=== PATIENT | male | born 1970 | race African-American/Black ===

== ENCOUNTER 2018-09-10 05:41 | Inpatient (IN) | payer OTHER ==
[~2018-09-10] VITALS: Ht 185.4 cm; Wt 69.9 kg
[2018-09-10] MEDS ORDERED: SODIUM CHLORIDE 0.9% 1,000 ML IV ONE ×3 (07:15→12:30)
[2018-09-10 07:40] LABS: BASOPHILS % 0.8 % (0.0-2.0); EOSINOPHILS % 0.4 % (0.0-5.0); HEMATOCRIT. 29.6 % (42.0-52.0); HEMOGLOBIN. 9.4 g/dL (14.0-18.0); LYMPHOCYTES % 12.5 % (20.0-50.0); MEAN CORPUSCULAR HEMOGLOBIN 24.5 pg (28.0-32.0); MEAN CORPUSCULAR VOLUME 76.7 fL (80.0-94.0); MONOCYTES % 8.6 % (2.0-8.0); NEUTROPHILS % 77.7 % (40.0-76.0); PLATELET 333 x1000/uL (130-400); RED BLOOD CELL COUNT 3.86 mill/uL (4.7-6.1); RED CELL DISTRIBUTION WIDTH 17.3 % (11.6-14.6)
[2018-09-10 07:47] LABS: CHLORIDE 101 mEq/L (98-107)
[2018-09-10 07:56] LABS: CREATINE KINASE 101 IU/L (39-308)
[2018-09-10 11:31] LABS: CLARITY URINE CLEAR (CLEAR); COLOR URINE YELLOW (YELLOW); KETONES URINE NEGATIVE (NEGATIVE); LEUKOCYTE ESTERASE URINE 1+ (NEGATIVE); NITRITE URINE NEGATIVE (NEGATIVE); OCCULT BLOOD URINE NEGATIVE (NEGATIVE); PH URINE 5.5 (4.5-8.0); PROTEIN URINE 1+ (NEGATIVE); SPECIFIC GRAVITY URINE 1.012 (1.005-1.030); UROBILINOGEN URINE 0.2 E.U./dL (0.2-1.0)
[2018-09-10] MEDS ORDERED: CEFTRIAXONE 1 G PREMIX 50 ML IV ONE (12:30)
[2018-09-10 20:00] VITALS: BP 126/82
[2018-09-10] MEDS ORDERED: MAGNESIUM/ALUMINUM HYDROXIDE/SIMETHICONE 30ML UDC PO PRN (20:30)
[2018-09-10] MEDS ORDERED: NA PHOS,M-B/NA PHOS,DI-BA ENEMA 118ML PR PRN (20:30)
[2018-09-10] MEDS ORDERED: ONDANSETRON HCL 4MG/2ML INJ IV PRN (20:30)
[2018-09-10 22:00] VITALS: BP 126/82
[2018-09-11] VITALS: BP 160/82
[2018-09-11 04:00] VITALS: BP 141/86
[2018-09-11] MEDS: HYDROCODONE/ACETAMINOPHEN 5/325MG TABLET PO PRN ×2 (04:15→21:51)
[2018-09-11 06:30] LABS: BASOPHILS % 1.4 % (0.0-2.0); HEMATOCRIT. 28.5 % (42.0-52.0); HEMOGLOBIN. 8.9 g/dL (14.0-18.0); LYMPHOCYTES % 23.9 % (20.0-50.0); MEAN CORPUSCULAR HEMOGLOBIN 24.3 pg (28.0-32.0); MEAN CORPUSCULAR VOLUME 77.5 fL (80.0-94.0); MEAN PLATELET VOLUME 8.6 fl (7.4-10.4); NEUTROPHILS % 58.7 % (40.0-76.0); PLATELET 370 x1000/uL (130-400); RED BLOOD CELL COUNT 3.68 mill/uL (4.7-6.1); RED CELL DISTRIBUTION WIDTH 17.3 % (11.6-14.6)
[2018-09-11 06:40] LABS: CHLORIDE 109 mEq/L (98-107)
[2018-09-11 08:00] VITALS: BP 168/98
[2018-09-11] MEDS: FOLIC ACID 1MG TABLET PO SCH (09:56)
[2018-09-11] MEDS: MULTIVITAMINS,THER W-MINERALS TABLET PO SCH (09:56)
[2018-09-11] MEDS: AMLODIPINE 10MG TABLET PO SCH (09:56)
[2018-09-11] MEDS: THIAMINE HCL 100MG TABLET PO SCH (09:56)
[2018-09-11] MEDS: ENOXAPARIN 40MG/0.4ML SYR SUBCUT SCH (09:57)
[2018-09-11 12:00] VITALS: BP 156/77
[2018-09-11 16:00] VITALS: BP 150/54
[2018-09-11] MEDS ORDERED: DEXTROSE 50% WATER 50ML SYRINGE IV PRN (16:00)
[2018-09-11] MEDS: INSULIN LISPRO 100 UNITS/ML SUBCUT SCH ×2 (17:50→21:44)
[2018-09-11] MEDS: BLOOD SUGAR DIAGNOSTIC STRIP TEST SCH ×2 (17:53→21:44)
[2018-09-11 20:00] VITALS: BP 138/81
[2018-09-12] VITALS: BP 117/69
[2018-09-12] MEDS: ACETAMINOPHEN 325MG TABLET PO PRN (00:55)
[2018-09-12 04:00] VITALS: BP 163/87
[2018-09-12] MEDS: INSULIN LISPRO 100 UNITS/ML SUBCUT SCH ×4 (07:50→21:00)
[2018-09-12] MEDS: BLOOD SUGAR DIAGNOSTIC STRIP TEST SCH ×4 (07:51→21:00)
[2018-09-12] MEDS: THIAMINE HCL 100MG TABLET PO SCH (09:34)
[2018-09-12] MEDS: AMLODIPINE 10MG TABLET PO SCH (09:34)
[2018-09-12] MEDS: MULTIVITAMINS,THER W-MINERALS TABLET PO SCH (09:34)
[2018-09-12] MEDS: FOLIC ACID 1MG TABLET PO SCH (09:34)
[2018-09-12] MEDS: ENOXAPARIN 40MG/0.4ML SYR SUBCUT SCH (09:35)
[2018-09-12] MEDS ORDERED: LIDOCAINE HCL/EPINEPHRINE 1%-EPI 1:100,000 20 ML VIAL INFIL NR (13:30)
[2018-09-12] MEDS ORDERED: LIDOCAINE HCL/EPINEPHRINE 1%-EPI 1:100,000 30 ML VIAL INFIL NR (14:30)
[2018-09-12] MEDS: LEVOFLOXACIN 500MG PREMIX 100 ML IV SCH (18:51)
[2018-09-12 20:00] VITALS: BP 166/74
[2018-09-13] VITALS: BP 139/84
[2018-09-13 04:00] VITALS: BP 171/93
[2018-09-13] MEDS: CLONIDINE 0.1MG TABLET PO PRN (05:59)
[2018-09-13] MEDS: BLOOD SUGAR DIAGNOSTIC STRIP TEST SCH ×4 (06:01→20:24)
[2018-09-13] MEDS: INSULIN LISPRO 100 UNITS/ML SUBCUT SCH ×4 (06:05→20:27)
[2018-09-13 08:00] VITALS: BP 154/82
[2018-09-13] MEDS: FOLIC ACID 1MG TABLET PO SCH (09:01)
[2018-09-13] MEDS: ASCORBIC ACID 500 MG TABLET PO SCH (09:01)
[2018-09-13] MEDS: MULTIVITAMINS,THER W-MINERALS TABLET PO SCH (09:01)
[2018-09-13] MEDS: ZINC SULFATE 220 MG ( 50 ) CAPSULE PO SCH (09:02)
[2018-09-13] MEDS: AMLODIPINE 10MG TABLET PO SCH (09:02)
[2018-09-13] MEDS: THIAMINE HCL 100MG TABLET PO SCH (09:02)
[2018-09-13] MEDS: ACETAMINOPHEN 325MG TABLET PO PRN (09:03)
[2018-09-13] MEDS: ENOXAPARIN 40MG/0.4ML SYR SUBCUT SCH (09:04)
[2018-09-13 12:00] VITALS: BP 167/90
[2018-09-13] MEDS: LEVOFLOXACIN 500MG PREMIX 100 ML IV SCH (15:07)
[2018-09-13 16:00] VITALS: BP 117/87
[2018-09-13 20:00] VITALS: BP 152/71
[2018-09-14] VITALS: BP 151/76
[2018-09-14 04:00] VITALS: BP 148/71
[2018-09-14] MEDS: BLOOD SUGAR DIAGNOSTIC STRIP TEST SCH ×4 (06:33→23:49)
[2018-09-14] MEDS: INSULIN LISPRO 100 UNITS/ML SUBCUT SCH ×4 (07:50→23:56)
[2018-09-14 08:00] VITALS: BP 160/96
[2018-09-14] MEDS: ENOXAPARIN 40MG/0.4ML SYR SUBCUT SCH (09:12)
[2018-09-14] MEDS: ASCORBIC ACID 500 MG TABLET PO SCH (09:12)
[2018-09-14] MEDS: AMLODIPINE 10MG TABLET PO SCH (09:12)
[2018-09-14] MEDS: ZINC SULFATE 220 MG ( 50 ) CAPSULE PO SCH (09:12)
[2018-09-14] MEDS: MULTIVITAMINS,THER W-MINERALS TABLET PO SCH (09:12)
[2018-09-14] MEDS: FOLIC ACID 1MG TABLET PO SCH (09:12)
[2018-09-14] MEDS: THIAMINE HCL 100MG TABLET PO SCH (09:12)
[2018-09-14 12:00] VITALS: BP 135/73
[2018-09-14 16:00] VITALS: BP_SYST 142; BP_SYST 159; BP_DIAS 77
[2018-09-14 20:00] VITALS: BP 133/78
[2018-09-15] VITALS: BP 138/74
[2018-09-15 04:00] VITALS: BP 167/98
[2018-09-15] MEDS: CLONIDINE 0.1MG TABLET PO PRN (04:56)
[2018-09-15] MEDS: BLOOD SUGAR DIAGNOSTIC STRIP TEST SCH ×4 (07:33→22:51)
[2018-09-15] MEDS: INSULIN LISPRO 100 UNITS/ML SUBCUT SCH ×4 (07:33→21:00)
[2018-09-15 08:00] VITALS: BP 153/84
[2018-09-15] MEDS: ASCORBIC ACID 500 MG TABLET PO SCH (08:57)
[2018-09-15] MEDS: ZINC SULFATE 220 MG ( 50 ) CAPSULE PO SCH (08:57)
[2018-09-15] MEDS: FOLIC ACID 1MG TABLET PO SCH (08:57)
[2018-09-15] MEDS: MULTIVITAMINS,THER W-MINERALS TABLET PO SCH (08:57)
[2018-09-15] MEDS: AMLODIPINE 10MG TABLET PO SCH (08:57)
[2018-09-15] MEDS: THIAMINE HCL 100MG TABLET PO SCH (08:57)
[2018-09-15] MEDS: ENOXAPARIN 40MG/0.4ML SYR SUBCUT SCH (08:58)
[2018-09-15 12:22] VITALS: BP 155/85
[2018-09-15] MEDS: LEVOFLOXACIN 250MG TABLET PO SCH (14:12)
[2018-09-15 15:58] VITALS: BP 160/66
[2018-09-15 20:00] VITALS: BP 155/95
[2018-09-16] VITALS: BP 158/89
[2018-09-16 04:00] VITALS: BP 146/86
[2018-09-16 06:16] LABS: HEMATOCRIT 28.7 % (42.0-52.0); HEMOGLOBIN 9.4 g/dL (14.0-18.0); MEAN CORPUSCULAR VOLUME 76.3 fL (80.0-94.0); PLATELET 391 x1000/uL (130-400); RED BLOOD CELL COUNT 3.77 mill/uL (4.7-6.1); RED CELL DISTRIBUTION WIDTH 17.4 % (11.6-14.6)
[2018-09-16] MEDS: BLOOD SUGAR DIAGNOSTIC STRIP TEST SCH ×4 (07:03→20:32)
[2018-09-16] MEDS: INSULIN LISPRO 100 UNITS/ML SUBCUT SCH ×4 (07:50→20:31)
[2018-09-16 08:00] VITALS: BP_SYST 127; BP_SYST 132; BP_DIAS 84; BP_DIAS 94
[2018-09-16] MEDS: THIAMINE HCL 100MG TABLET PO SCH (08:59)
[2018-09-16] MEDS: ZINC SULFATE 220 MG ( 50 ) CAPSULE PO SCH (08:59)
[2018-09-16] MEDS: MULTIVITAMINS,THER W-MINERALS TABLET PO SCH (09:00)
[2018-09-16] MEDS: ASCORBIC ACID 500 MG TABLET PO SCH (09:00)
[2018-09-16] MEDS: ENOXAPARIN 40MG/0.4ML SYR SUBCUT SCH (09:00)
[2018-09-16] MEDS: AMLODIPINE 10MG TABLET PO SCH (09:00)
[2018-09-16] MEDS: FOLIC ACID 1MG TABLET PO SCH (09:00)
[2018-09-16 12:00] VITALS: BP 159/56
[2018-09-16] MEDS: LEVOFLOXACIN 250MG TABLET PO SCH (13:05)
[2018-09-16 16:00] VITALS: BP 125/79
[2018-09-16 20:00] VITALS: BP 146/76
[2018-09-16] MEDS: HYDROCODONE/ACETAMINOPHEN 5/325MG TABLET PO PRN (20:32)
[2018-09-17] VITALS: BP 160/89
[2018-09-17 04:00] VITALS: BP 158/91
[2018-09-17 06:48] LABS: CHLORIDE 101 mEq/L (98-107)
[2018-09-17] MEDS: BLOOD SUGAR DIAGNOSTIC STRIP TEST SCH ×4 (07:57→20:52)
[2018-09-17 08:25] VITALS: BP 198/98
[2018-09-17] MEDS: THIAMINE HCL 100MG TABLET PO SCH (08:47)
[2018-09-17] MEDS: AMLODIPINE 10MG TABLET PO SCH (08:47)
[2018-09-17] MEDS: MULTIVITAMINS,THER W-MINERALS TABLET PO SCH (08:47)
[2018-09-17] MEDS: ASCORBIC ACID 500 MG TABLET PO SCH (08:47)
[2018-09-17] MEDS: FOLIC ACID 1MG TABLET PO SCH (08:47)
[2018-09-17] MEDS: ZINC SULFATE 220 MG ( 50 ) CAPSULE PO SCH (08:47)
[2018-09-17] MEDS: ENOXAPARIN 40MG/0.4ML SYR SUBCUT SCH (08:48)
[2018-09-17] MEDS: HYDROCODONE/ACETAMINOPHEN 5/325MG TABLET PO PRN ×2 (08:48→20:17)
[2018-09-17] MEDS: INSULIN LISPRO 100 UNITS/ML SUBCUT SCH ×4 (08:52→21:25)
[2018-09-17 11:48] VITALS: BP 144/82
[2018-09-17] MEDS: LEVOFLOXACIN 250MG TABLET PO SCH (13:12)
[2018-09-17 16:17] VITALS: BP 156/85
[2018-09-17 20:00] VITALS: BP 148/81
[2018-09-18] VITALS: BP 116/74
[2018-09-18] MEDS: HYDROCODONE/ACETAMINOPHEN 5/325MG TABLET PO PRN ×3 (00:20→20:37)
[2018-09-18 04:00] VITALS: BP 141/77
[2018-09-18] MEDS: BLOOD SUGAR DIAGNOSTIC STRIP TEST SCH ×4 (05:35→20:37)
[2018-09-18] MEDS: INSULIN LISPRO 100 UNITS/ML SUBCUT SCH ×4 (07:50→21:10)
[2018-09-18 08:00] VITALS: BP 174/87
[2018-09-18] MEDS: ASCORBIC ACID 500 MG TABLET PO SCH (09:10)
[2018-09-18] MEDS: FOLIC ACID 1MG TABLET PO SCH (09:10)
[2018-09-18] MEDS: ZINC SULFATE 220 MG ( 50 ) CAPSULE PO SCH (09:11)
[2018-09-18] MEDS: AMLODIPINE 10MG TABLET PO SCH (09:11)
[2018-09-18] MEDS: THIAMINE HCL 100MG TABLET PO SCH (09:11)
[2018-09-18] MEDS: MULTIVITAMINS,THER W-MINERALS TABLET PO SCH (09:11)
[2018-09-18] MEDS: ENOXAPARIN 40MG/0.4ML SYR SUBCUT SCH (09:12)
[2018-09-18 12:00] VITALS: BP 117/75
[2018-09-18] MEDS: LEVOFLOXACIN 250MG TABLET PO SCH (14:05)
[2018-09-18 16:00] VITALS: BP 152/86
[2018-09-18 20:00] VITALS: BP 147/80
[2018-09-19] VITALS: BP 153/67
[2018-09-19 04:00] VITALS: BP 151/89
[2018-09-19] MEDS: BLOOD SUGAR DIAGNOSTIC STRIP TEST SCH ×4 (06:15→21:00)
[2018-09-19] MEDS: INSULIN LISPRO 100 UNITS/ML SUBCUT SCH ×4 (06:59→21:00)
[2018-09-19 08:00] VITALS: BP 156/86
[2018-09-19] MEDS: FOLIC ACID 1MG TABLET PO SCH (09:41)
[2018-09-19] MEDS: ZINC SULFATE 220 MG ( 50 ) CAPSULE PO SCH (09:41)
[2018-09-19] MEDS: HYDROCODONE/ACETAMINOPHEN 5/325MG TABLET PO PRN (09:41)
[2018-09-19] MEDS: THIAMINE HCL 100MG TABLET PO SCH (09:41)
[2018-09-19] MEDS: MULTIVITAMINS,THER W-MINERALS TABLET PO SCH (09:41)
[2018-09-19] MEDS: ASCORBIC ACID 500 MG TABLET PO SCH (09:41)
[2018-09-19] MEDS: AMLODIPINE 10MG TABLET PO SCH (09:41)
[2018-09-19] MEDS: ENOXAPARIN 40MG/0.4ML SYR SUBCUT SCH (09:42)
[2018-09-19 12:00] VITALS: BP 152/76
[2018-09-19] MEDS: DOCUSATE SODIUM 100MG CAPSULE PO PRN (12:43)
[2018-09-19] MEDS: LEVOFLOXACIN 500MG TABLET PO SCH (15:16)
[2018-09-19 16:00] VITALS: BP 156/59
[2018-09-19 20:00] VITALS: BP 173/97
[2018-09-20] VITALS: BP 157/63
[2018-09-20 04:00] VITALS: BP 157/73
[2018-09-20] MEDS: BLOOD SUGAR DIAGNOSTIC STRIP TEST SCH ×4 (07:00→22:22)
[2018-09-20] MEDS: INSULIN LISPRO 100 UNITS/ML SUBCUT SCH ×4 (07:00→22:21)
[2018-09-20 08:00] VITALS: BP 168/99
[2018-09-20] MEDS: ZINC SULFATE 220 MG ( 50 ) CAPSULE PO SCH (09:27)
[2018-09-20] MEDS: THIAMINE HCL 100MG TABLET PO SCH (09:27)
[2018-09-20] MEDS: MULTIVITAMINS,THER W-MINERALS TABLET PO SCH (09:27)
[2018-09-20] MEDS: ASCORBIC ACID 500 MG TABLET PO SCH (09:27)
[2018-09-20] MEDS: DOCUSATE SODIUM 100MG CAPSULE PO PRN ×3 (09:27→22:23)
[2018-09-20] MEDS: AMLODIPINE 10MG TABLET PO SCH (09:27)
[2018-09-20] MEDS: FOLIC ACID 1MG TABLET PO SCH (09:27)
[2018-09-20] MEDS: HYDROCODONE/ACETAMINOPHEN 5/325MG TABLET PO PRN (09:28)
[2018-09-20] MEDS: ENOXAPARIN 40MG/0.4ML SYR SUBCUT SCH (09:28)
[2018-09-20] MEDS: LEVOFLOXACIN 500MG TABLET PO SCH (11:29)
[2018-09-20 12:00] VITALS: BP 148/99
[2018-09-20 16:00] VITALS: BP 163/85
[2018-09-20 20:00] VITALS: BP 188/70
[2018-09-20] MEDS: CLONIDINE 0.1MG TABLET PO PRN (22:56)
[2018-09-21] VITALS: BP 160/83
[2018-09-21 04:00] VITALS: BP 181/94
[2018-09-21] MEDS: CLONIDINE 0.1MG TABLET PO PRN (06:12)
[2018-09-21] MEDS: INSULIN LISPRO 100 UNITS/ML SUBCUT SCH ×2 (07:50→12:35)
[2018-09-21 08:00] VITALS: BP 169/95
[2018-09-21] MEDS: ZINC SULFATE 220 MG ( 50 ) CAPSULE PO SCH (09:25)
[2018-09-21] MEDS: ASCORBIC ACID 500 MG TABLET PO SCH (09:25)
[2018-09-21] MEDS: MULTIVITAMINS,THER W-MINERALS TABLET PO SCH (09:25)
[2018-09-21] MEDS: THIAMINE HCL 100MG TABLET PO SCH (09:26)
[2018-09-21] MEDS: FOLIC ACID 1MG TABLET PO SCH (09:26)
[2018-09-21] MEDS: ENOXAPARIN 40MG/0.4ML SYR SUBCUT SCH (09:27)
[2018-09-21] MEDS: AMLODIPINE 10MG TABLET PO SCH (09:27)
[2018-09-21] MEDS: LEVOFLOXACIN 500MG TABLET PO SCH (11:35)
[2018-09-21] MEDS: BLOOD SUGAR DIAGNOSTIC STRIP TEST SCH (11:48)
[2018-09-21 12:00] VITALS: BP 149/80
== END 2018-09-21 15:50 | disposition left against medical advice (07) | DRG 469 ==
LOC: ER 05:41 → 6EST 13:21 → ENRESERV 19:29
PROVIDERS: ADMIT Hospitalist; ATTEND Hospitalist
PROC: 0JB70ZZ Excision of Back Subcutaneous Tissue and Fascia, Open Approach (ICD-10-PCS; principal; 2018-09-12)
DX: N17.9 Acute kidney failure, unspecified (principal); L89.153 Pressure ulcer of sacral region, stage 3; T68.XXXA Hypothermia, initial encounter; R65.10 Systemic inflammatory response syndrome (SIRS) of non-infectious origin without acute organ dysfunction; L89.610 Pressure ulcer of right heel, unstageable; N39.0 Urinary tract infection, site not specified; D63.8 Anemia in other chronic diseases classified elsewhere; E11.9 Type 2 diabetes mellitus without complications; F17.200 Nicotine dependence, unspecified, uncomplicated; B96.4 Proteus (mirabilis) (morganii) as the cause of diseases classified elsewhere; L85.9 Epidermal thickening, unspecified; M25.572 Pain in left ankle and joints of left foot; I10 Essential (primary) hypertension; Z53.21 Procedure and treatment not carried out due to patient leaving prior to being seen by health care provider; Z59.0 Homelessness
CPT/HCPCS: 36415; 71045; 73610; 80048; 82550; 82962; 83605; 84134; 84484; 85027; 87077; 87186; 93970; 96361; 96365; 97116; 97162; 99285; J0696; J1650; J1815; J1956; J3490; J7030

== ENCOUNTER 2019-02-20 10:07 | Inpatient (IN) | payer OTHER ==
[2019-02-20] VITALS (12 sets, daily range): BP systolic 122–210; BP diastolic 79–141
[~2019-02-20] VITALS: Ht 188 cm; Wt 122.5 kg
[2019-02-20] MEDS ORDERED: SODIUM CHLORIDE 0.9% 1,000 ML IV ONE (10:39)
[2019-02-20 11:07] LABS: HEMATOCRIT. 40.4 % (42.0-52.0); MEAN CORPUSCULAR HEMOGLOBIN 26.4 pg (28.0-32.0); MEAN CORPUSCULAR VOLUME 81.7 fL (80.0-94.0); MEAN PLATELET VOLUME 9.3 fl (7.4-10.4); PLATELET 205 x1000/uL (130-400); RED BLOOD CELL COUNT 4.94 mill/uL (4.7-6.1); RED CELL DISTRIBUTION WIDTH 19.5 % (11.6-14.6)
[2019-02-20 11:11] LABS: CHLORIDE 111 mEq/L (98-107)
[2019-02-20 11:13] LABS: INR 1.1; PROTHROMBIN TIME 11.5 sec (9.6-11.0)
[2019-02-20 11:15] LABS: ETHANOL BLOOD < 10 mg/dL
[2019-02-20] MEDS ORDERED: ADENOSINE 3 MG/ML 2ML VIAL IV ONE ×2 (11:45)
[2019-02-20 12:00] LABS: CLARITY URINE CLEAR (CLEAR); COLOR URINE YELLOW (YELLOW); KETONES URINE NEGATIVE (NEGATIVE); LEUKOCYTE ESTERASE URINE NEGATIVE (NEGATIVE); NITRITE URINE NEGATIVE (NEGATIVE); OCCULT BLOOD URINE TRACE (NEGATIVE); PH URINE 5.5 (4.5-8.0); PROTEIN URINE 2+ (NEGATIVE); SPECIFIC GRAVITY URINE 1.014 (1.005-1.030)
[2019-02-20 12:07] LABS: PLATELET ESTIMATE NORMAL
[2019-02-20] MEDS ORDERED: DILTIAZEM HCL 5MG/ML 5ML VIAL IV NR (12:30)
[2019-02-20 12:38] LABS: *AMPHETAMINES SCREEN URINE PRESUMTIVE POSITIVE (NEGATIVE); *BARBITURATES SCREEN URINE NEGATIVE (NEGATIVE); *BENZODIAZEPINES SCREEN URINE NEGATIVE (NEGATIVE); *COCAINE SCREEN URINE PRESUMTIVE POSITIVE (NEGATIVE)
[2019-02-20 12:39] LABS: CANNABINOID URINE SCREEN PRESUMTIVE POSITIVE (NEGATIVE); METHADONE URINE SCREEN NEGATIVE (NEGATIVE); OPIATES URINE SCREEN NEGATIVE (NEGATIVE); PHENCYCLIDINE URINE SCREEN PRESUMTIVE POSITIVE (NEGATIVE)
[2019-02-20] MEDS ORDERED: AMIODARONE HCL 900 MG in DEXT 5% WATER 500 ML IV ONE (13:30)
[2019-02-20] MEDS ORDERED: AMIODARONE HCL 150 MG in DEXT 5% WATER 100 ML IV ONE (13:30)
[2019-02-20] MEDS ORDERED: DIPHENHYDRAMINE 50MG/ML VIAL IV PRN (13:45)
[2019-02-20] MEDS ORDERED: ONDANSETRON HCL 4MG/2ML INJ IV PRN (13:45)
[2019-02-20] MEDS ORDERED: IPRATROPIUM/ALBUTEROL 0.5-3(2.5)MG/3ML NEB INH PRN (13:45)
[2019-02-20] MEDS ORDERED: MAGNESIUM/ALUMINUM HYDROXIDE/SIMETHICONE 30ML UDC PO PRN (13:45)
[2019-02-20] MEDS ORDERED: HYDROCODONE/ACETAMINOPHEN 5/325MG TABLET PO PRN (13:45)
[2019-02-20] MEDS ORDERED: ENOXAPARIN 40MG/0.4ML SYR SUBCUT SCH (13:45)
[2019-02-20 13:55] LABS: PHOSPHORUS 3.8 mg/dL (2.5-4.9)
[2019-02-20] MEDS ORDERED: DILTIAZEM HCL 125 MG in DEXT 5% WATER 100 ML IV ONE (14:00)
[2019-02-20 14:26] LABS: BG BASE EXCESS -6.5 mmol/L (-2.0-2.0); BG CARBOXYHEMOGLOBIN 1.5 % (0.5-1.5); BG DEOXYHEMOGLOBIN 6.1 % (0.0-5.0); BG FRACTION INSPIRED OXYGEN 32; BG METHEMOGLOBIN 0.1 % (0.0-1.5); BG OXYGEN SATURATION 93.8 % (92.0-98.5); BG OXYHEMOGLOBIN 92.3 % (94.0-97.0); BG PCO2 33.1 mmHg (35.0-45.0); BG PH 7.353 (7.350-7.450); BG PO2 74.4 mmHg (75.0-100.0); BG SAMPLE SITE RIGHT BRACHIAL; BG TOTAL HEMOGLOBIN 13.9 g/dL (12.0-18.0); BG VENT MODE NASAL CANNULA
[2019-02-20 14:50] LABS: CREATINE KINASE MB FRACTION 4.8 ng/mL (0.5-3.6)
[2019-02-20] MEDS ORDERED: ENOXAPARIN 80MG/0.8ML SYR SUBCUT SCH (16:00)
[2019-02-20] MEDS ORDERED: POTASSIUM CHLORIDE 20MEQ/PACKET PO NR (16:00)
[2019-02-20] MEDS: DILTIAZEM HCL 125 MG in DEXT 5% WATER 100 ML IV SCH ×2 (16:00→22:20)
[2019-02-20] MEDS ORDERED: DILTIAZEM HCL 125 MG in DEXT 5% WATER 100 ML IV SCH (16:30)
[2019-02-20] MEDS ORDERED: HYDRALAZINE HCL 25MG TABLET PO SCH (16:33)
[2019-02-20] MEDS: FUROSEMIDE 40MG/4ML VIAL IV SCH (16:37)
[2019-02-20] MEDS: NITROGLYCERIN OINT 1GM/INCH UDPKT TD SCH ×2 (16:45→22:08)
[2019-02-20] MEDS: BLOOD SUGAR DIAGNOSTIC STRIP TEST SCH ×2 (17:23→21:27)
[2019-02-20] MEDS ORDERED: DEXTROSE 50% WATER 50ML SYRINGE IV PRN (17:30)
[2019-02-20] MEDS: INSULIN LISPRO 100 UNITS/ML SUBCUT SCH ×2 (17:37→21:39)
[2019-02-20] MEDS ORDERED: POTASSIUM CHLORIDE INJ 40 MEQ in DEXT 5% WATER 250 ML IV NR (18:00)
[2019-02-20] MEDS: LORAZEPAM 0.5MG TABLET PO PRN (22:07)
[2019-02-20] MEDS: HYDRALAZINE HCL 25MG TABLET PO SCH (22:08)
[2019-02-21] VITALS (14 sets, daily range): BP systolic 111–161; BP diastolic 76–110
[2019-02-21] MEDS: DILTIAZEM HCL 125 MG in DEXT 5% WATER 100 ML IV SCH ×3 (00:20→18:04)
[2019-02-21 01:58] LABS: BG BASE EXCESS -7.1 mmol/L (-2.0-2.0); BG CARBOXYHEMOGLOBIN 1.2 % (0.5-1.5); BG DEOXYHEMOGLOBIN 6.9 % (0.0-5.0); BG FRACTION INSPIRED OXYGEN 28; BG METHEMOGLOBIN 0.2 % (0.0-1.5); BG OXYHEMOGLOBIN 91.7 % (94.0-97.0); BG PCO2 19.7 mmHg (35.0-45.0); BG PH 7.469 (7.350-7.450); BG PO2 62.8 mmHg (75.0-100.0); BG SAMPLE SITE RIGHT RADIAL; BG TOTAL HEMOGLOBIN 14.4 g/dL (12.0-18.0); BG VENT MODE NASAL CANNULA
[2019-02-21] MEDS ORDERED: ENOXAPARIN 100MG/ML SYR SUBCUT SCH (04:00)
[2019-02-21] MEDS: NITROGLYCERIN OINT 1GM/INCH UDPKT TD SCH ×4 (05:43→22:48)
[2019-02-21] MEDS: LORAZEPAM 0.5MG TABLET PO PRN (05:43)
[2019-02-21] MEDS: HYDRALAZINE HCL 25MG TABLET PO SCH ×3 (05:43→22:49)
[2019-02-21] MEDS: FUROSEMIDE 40MG/4ML VIAL IV SCH ×2 (06:26→18:04)
[2019-02-21] MEDS: BLOOD SUGAR DIAGNOSTIC STRIP TEST SCH ×4 (06:32→21:00)
[2019-02-21 06:38] LABS: BASOPHILS % 0.8 % (0.0-2.0); EOSINOPHILS % 0.8 % (0.0-5.0); HEMATOCRIT. 41.7 % (42.0-52.0); HEMOGLOBIN. 13.2 g/dL (14.0-18.0); LYMPHOCYTES % 27.2 % (20.0-50.0); MEAN CORPUSCULAR HEMOGLOBIN 26.1 pg (28.0-32.0); MEAN CORPUSCULAR VOLUME 82.5 fL (80.0-94.0); MEAN PLATELET VOLUME 9.1 fl (7.4-10.4); MONOCYTES % 8.6 % (2.0-8.0); NEUTROPHILS % 62.6 % (40.0-76.0); PLATELET 218 x1000/uL (130-400); RED BLOOD CELL COUNT 5.05 mill/uL (4.7-6.1); RED CELL DISTRIBUTION WIDTH 20.4 % (11.6-14.6)
[2019-02-21] MEDS: INSULIN LISPRO 100 UNITS/ML SUBCUT SCH ×4 (07:20→21:10)
[2019-02-21 08:10] LABS: CHLORIDE 112 mEq/L (98-107)
[2019-02-21 08:27] LABS: CREATINE KINASE 89 IU/L (39-308); HDL CHOLESTEROL 42 mg/dL (40-59)
[2019-02-21] MEDS: CITRIC ACID/SODIUM CITRATE SOLN 30ML UDC PO SCH ×2 (08:29→20:01)
[2019-02-21 08:31] LABS: LDL CHOLESTEROL 67 mg/dL (5-100)
[2019-02-21 08:37] LABS: PHOSPHORUS 4.3 mg/dL (2.5-4.9)
[2019-02-21] MEDS ORDERED: HALOPERIDOL LACTATE 5MG/ML VIAL IM PRN (09:30)
[2019-02-21 11:50] LABS: BG BASE EXCESS -2.9 mmol/L (-2.0-2.0); BG CARBOXYHEMOGLOBIN 1.1 % (0.5-1.5); BG DEOXYHEMOGLOBIN 4.5 % (0.0-5.0); BG FRACTION INSPIRED OXYGEN 28; BG HCO3 ACT 19.5 mmol/L (22.0-26.0); BG METHEMOGLOBIN 0.2 % (0.0-1.5); BG OXYGEN SATURATION 95.4 % (92.0-98.5); BG OXYHEMOGLOBIN 94.2 % (94.0-97.0); BG PCO2 27.9 mmHg (35.0-45.0); BG PH 7.462 (7.350-7.450); BG PO2 75.6 mmHg (75.0-100.0); BG SAMPLE SITE RIGHT RADIAL; BG TOTAL HEMOGLOBIN 13.9 g/dL (12.0-18.0); BG VENT MODE NASAL CANNULA
[2019-02-21 12:26] LABS: T4 FREE 0.95 ng/dL (0.76-1.46)
[2019-02-21 15:08] LABS: HEPATITIS A AB IGM NEGATIVE (NEGATIVE)
[2019-02-21 16:04] LABS: HEPATITIS B SURFACE ANTIGEN NEGATIVE
[2019-02-21] MEDS: CLONIDINE 0.1MG TABLET PO PRN (19:58)
[2019-02-22] VITALS (17 sets, daily range): BP systolic 130–181; BP diastolic 78–119
[2019-02-22] MEDS: DILTIAZEM HCL 125 MG in DEXT 5% WATER 100 ML IV SCH (01:34)
[2019-02-22] MEDS: CLONIDINE 0.1MG TABLET PO PRN (01:42)
[2019-02-22] MEDS: HYDRALAZINE HCL 25MG TABLET PO SCH (06:09)
[2019-02-22] MEDS: NITROGLYCERIN OINT 1GM/INCH UDPKT TD SCH (06:09)
[2019-02-22] MEDS: BLOOD SUGAR DIAGNOSTIC STRIP TEST SCH ×4 (06:13→20:53)
[2019-02-22] MEDS: FUROSEMIDE 40MG/4ML VIAL IV SCH ×2 (06:18→17:45)
[2019-02-22 06:44] LABS: BASOPHILS % 1.1 % (0.0-2.0); EOSINOPHILS % 2.1 % (0.0-5.0); HEMATOCRIT. 41.2 % (42.0-52.0); HEMOGLOBIN. 13.3 g/dL (14.0-18.0); LYMPHOCYTES % 24.1 % (20.0-50.0); MEAN CORPUSCULAR HEMOGLOBIN 26.6 pg (28.0-32.0); MEAN CORPUSCULAR VOLUME 82.4 fL (80.0-94.0); MEAN PLATELET VOLUME 9.2 fl (7.4-10.4); MONOCYTES % 9.9 % (2.0-8.0); NEUTROPHILS % 62.8 % (40.0-76.0); PLATELET 234 x1000/uL (130-400); RED CELL DISTRIBUTION WIDTH 20.4 % (11.6-14.6)
[2019-02-22 07:12] LABS: HIV SCREEN 4G Non Reactive (Non Reactive)
[2019-02-22 07:21] LABS: PHOSPHORUS 3.9 mg/dL (2.5-4.9)
[2019-02-22] MEDS: CITRIC ACID/SODIUM CITRATE SOLN 30ML UDC PO SCH ×2 (08:30→21:10)
[2019-02-22] MEDS: INSULIN LISPRO 100 UNITS/ML SUBCUT SCH ×4 (08:30→21:10)
[2019-02-22] MEDS ORDERED: CLOPIDOGREL 75MG TABLET PO SCH (09:00)
[2019-02-22 09:46] LABS: T4 FREE 1.01 ng/dL (0.76-1.46)
[2019-02-22] MEDS ORDERED: LOSARTAN POTASSIUM 25 MG TABLET PO SCH (10:00)
[2019-02-22 10:05] LABS: VITAMIN B12 SERUM >2000 pg/mL pg/mL (211-911)
[2019-02-22] MEDS: THIAMINE HCL 100MG TABLET PO SCH (10:09)
[2019-02-22] MEDS: MULTIVITAMINS,THER W-MINERALS TABLET PO SCH (10:09)
[2019-02-22] MEDS: ASPIRIN 81MG EC TABLET PO SCH (10:09)
[2019-02-22] MEDS: FOLIC ACID 1MG TABLET PO SCH (10:09)
[2019-02-22] MEDS: HYDRALAZINE HCL 50MG TABLET PO SCH ×2 (13:14→21:14)
[2019-02-22] MEDS: LACTULOSE 20G/30ML UDC PO SCH ×2 (13:14→21:13)
[2019-02-22] MEDS ORDERED: DILTIAZEM HCL 60MG TABLET PO SCH (14:00)
[2019-02-22] MEDS ORDERED: ATROPINE SULFATE 1MG/ML VIAL IV PRN (15:45)
[2019-02-22] MEDS: RIVAROXABAN 20 MG TABLET PO SCH (17:45)
[2019-02-22] MEDS: ATORVASTATIN CALCIUM 10MG TABLET PO SCH (21:10)
[2019-02-22] MEDS ORDERED: DILTIAZEM HCL 5MG/ML 5ML VIAL IV PRN (23:15)
[2019-02-23] VITALS (17 sets, daily range): BP systolic 126–183; BP diastolic 79–134
[2019-02-23] MEDS: CLONIDINE 0.1MG TABLET PO PRN ×2 (01:29→08:25)
[2019-02-23] MEDS: LACTULOSE 20G/30ML UDC PO SCH ×3 (05:18→23:05)
[2019-02-23] MEDS: HYDRALAZINE HCL 50MG TABLET PO SCH (05:18)
[2019-02-23] MEDS ORDERED: AMLODIPINE 2.5MG TABLET PO NR (06:00)
[2019-02-23] MEDS: BLOOD SUGAR DIAGNOSTIC STRIP TEST SCH ×5 (06:53→20:59)
[2019-02-23] MEDS: GLIPIZIDE 5MG TABLET PO SCH (07:04)
[2019-02-23] MEDS: FUROSEMIDE 40MG/4ML VIAL IV SCH (07:04)
[2019-02-23 07:45] LABS: HEMATOCRIT. 42.3 % (42.0-52.0); HEMOGLOBIN. 13.7 g/dL (14.0-18.0); LYMPHOCYTES % 24.3 % (20.0-50.0); MEAN CORPUSCULAR HEMOGLOBIN 26.4 pg (28.0-32.0); MEAN CORPUSCULAR VOLUME 81.4 fL (80.0-94.0); MEAN PLATELET VOLUME 8.9 fl (7.4-10.4); MONOCYTES % 9.3 % (2.0-8.0); NEUTROPHILS % 63.4 % (40.0-76.0); PLATELET 222 x1000/uL (130-400); RED BLOOD CELL COUNT 5.19 mill/uL (4.7-6.1)
[2019-02-23 08:02] LABS: PHOSPHORUS 2.7 mg/dL (2.5-4.9)
[2019-02-23] MEDS: THIAMINE HCL 100MG TABLET PO SCH (08:24)
[2019-02-23] MEDS: ASPIRIN 81MG EC TABLET PO SCH (08:24)
[2019-02-23] MEDS: MULTIVITAMINS,THER W-MINERALS TABLET PO SCH (08:24)
[2019-02-23] MEDS: FOLIC ACID 1MG TABLET PO SCH (08:24)
[2019-02-23] MEDS: INSULIN LISPRO 100 UNITS/ML SUBCUT SCH ×4 (08:25→21:13)
[2019-02-23] MEDS: CITRIC ACID/SODIUM CITRATE SOLN 30ML UDC PO SCH (08:26)
[2019-02-23] MEDS ORDERED: POTASSIUM CHLORIDE 20MEQ TABLET SR PO SCH (08:45)
[2019-02-23] MEDS ORDERED: DILTIAZEM HCL 30MG TABLET PO SCH ×2 (10:00→14:00)
[2019-02-23] MEDS ORDERED: LOSARTAN POTASSIUM 50 MG TABLET PO SCH (12:00)
[2019-02-23] MEDS: ISOSORB DINIT/HYDRALAZINE HCL 20/37.5MG TABLET PO SCH ×2 (12:51→18:01)
[2019-02-23] MEDS ORDERED: MAGNESIUM 1 G PREMIX 100 ML IV SCH (13:00)
[2019-02-23] MEDS ORDERED: DILTIAZEM HCL 60MG TABLET PO SCH (14:00)
[2019-02-23] MEDS: RIVAROXABAN 20 MG TABLET PO SCH (18:01)
[2019-02-23] MEDS: FUROSEMIDE 20MG TABLET PO SCH (18:02)
[2019-02-23] MEDS: ATORVASTATIN CALCIUM 10MG TABLET PO SCH (21:11)
[2019-02-23] MEDS: DOXAZOSIN MESYLATE 2MG TABLET PO SCH (21:11)
[2019-02-23] MEDS: DILTIAZEM HCL 30MG TABLET PO SCH (21:12)
[2019-02-24] VITALS (15 sets, daily range): BP systolic 134–193; BP diastolic 77–124
[2019-02-24] MEDS: FUROSEMIDE 20MG TABLET PO SCH ×2 (06:04→17:44)
[2019-02-24] MEDS: GLIPIZIDE 5MG TABLET PO SCH (06:04)
[2019-02-24] MEDS: LACTULOSE 20G/30ML UDC PO SCH ×3 (06:04→21:30)
[2019-02-24] MEDS: BLOOD SUGAR DIAGNOSTIC STRIP TEST SCH ×4 (06:04→21:39)
[2019-02-24] MEDS: DILTIAZEM HCL 30MG TABLET PO SCH ×3 (06:04→21:31)
[2019-02-24 07:38] LABS: CHLORIDE 106 mEq/L (98-107)
[2019-02-24 07:47] LABS: PHOSPHORUS 2.3 mg/dL (2.5-4.9)
[2019-02-24 08:03] LABS: BASOPHILS % 0.6 % (0.0-2.0); EOSINOPHILS % 1.6 % (0.0-5.0); HEMATOCRIT. 39.2 % (42.0-52.0); HEMOGLOBIN. 12.5 g/dL (14.0-18.0); MEAN CORPUSCULAR HEMOGLOBIN 26.2 pg (28.0-32.0); MEAN CORPUSCULAR VOLUME 81.9 fL (80.0-94.0); MEAN PLATELET VOLUME 9.1 fl (7.4-10.4); MONOCYTES % 9.5 % (2.0-8.0); NEUTROPHILS % 63.3 % (40.0-76.0); PLATELET 183 x1000/uL (130-400); RED BLOOD CELL COUNT 4.78 mill/uL (4.7-6.1)
[2019-02-24] MEDS ORDERED: POTASSIUM-SODIUM PHOSPHATE POWDER PACKET PO NR (09:30)
[2019-02-24] MEDS: POTASSIUM CHLORIDE 20MEQ TABLET SR PO SCH (09:32)
[2019-02-24] MEDS: MULTIVITAMINS,THER W-MINERALS TABLET PO SCH (09:32)
[2019-02-24] MEDS: FOLIC ACID 1MG TABLET PO SCH (09:32)
[2019-02-24] MEDS: ASPIRIN 81MG EC TABLET PO SCH (09:33)
[2019-02-24] MEDS: ISOSORB DINIT/HYDRALAZINE HCL 20/37.5MG TABLET PO SCH ×3 (09:33→17:44)
[2019-02-24] MEDS: LOSARTAN POTASSIUM 50 MG TABLET PO SCH ×2 (09:33→21:31)
[2019-02-24] MEDS: THIAMINE HCL 100MG TABLET PO SCH (09:33)
[2019-02-24] MEDS: INSULIN LISPRO 100 UNITS/ML SUBCUT SCH ×4 (09:34→21:32)
[2019-02-24] MEDS: CLONIDINE 0.2MG TABLET PO SCH ×2 (15:14→21:31)
[2019-02-24] MEDS: RIVAROXABAN 20 MG TABLET PO SCH (17:44)
[2019-02-24] MEDS: ATORVASTATIN CALCIUM 10MG TABLET PO SCH (21:31)
[2019-02-24] MEDS: DOXAZOSIN MESYLATE 2MG TABLET PO SCH (21:56)
[2019-02-25] VITALS (12 sets, daily range): BP systolic 120–169; BP diastolic 30–133
[2019-02-25] MEDS: FUROSEMIDE 20MG TABLET PO SCH ×2 (06:39→17:44)
[2019-02-25] MEDS: GLIPIZIDE 5MG TABLET PO SCH (06:39)
[2019-02-25] MEDS: CLONIDINE 0.2MG TABLET PO SCH ×3 (06:39→21:07)
[2019-02-25] MEDS: DILTIAZEM HCL 30MG TABLET PO SCH ×3 (06:39→21:07)
[2019-02-25] MEDS: LACTULOSE 20G/30ML UDC PO SCH ×3 (06:40→21:08)
[2019-02-25] MEDS: BLOOD SUGAR DIAGNOSTIC STRIP TEST SCH ×4 (06:50→21:08)
[2019-02-25 06:51] LABS: BASOPHILS % 1.2 % (0.0-2.0); EOSINOPHILS % 1.8 % (0.0-5.0); HEMATOCRIT. 38.6 % (42.0-52.0); HEMOGLOBIN. 12.5 g/dL (14.0-18.0); LYMPHOCYTES % 23.1 % (20.0-50.0); MEAN CORPUSCULAR HEMOGLOBIN 26.4 pg (28.0-32.0); MEAN CORPUSCULAR VOLUME 81.2 fL (80.0-94.0); MEAN PLATELET VOLUME 8.8 fl (7.4-10.4); MONOCYTES % 9.8 % (2.0-8.0); NEUTROPHILS % 64.1 % (40.0-76.0); PLATELET 189 x1000/uL (130-400); RED BLOOD CELL COUNT 4.75 mill/uL (4.7-6.1); RED CELL DISTRIBUTION WIDTH 19.9 % (11.6-14.6)
[2019-02-25 06:57] LABS: CHLORIDE 106 mEq/L (98-107)
[2019-02-25 07:01] LABS: PHOSPHORUS 2.7 mg/dL (2.5-4.9)
[2019-02-25] MEDS: INSULIN LISPRO 100 UNITS/ML SUBCUT SCH ×4 (07:20→21:00)
[2019-02-25] MEDS: LOSARTAN POTASSIUM 50 MG TABLET PO SCH ×2 (09:13→21:07)
[2019-02-25] MEDS: ISOSORB DINIT/HYDRALAZINE HCL 20/37.5MG TABLET PO SCH ×3 (09:13→17:45)
[2019-02-25] MEDS: THIAMINE HCL 100MG TABLET PO SCH (09:13)
[2019-02-25] MEDS: POTASSIUM CHLORIDE 20MEQ TABLET SR PO SCH (09:13)
[2019-02-25] MEDS: ASPIRIN 81MG EC TABLET PO SCH (09:13)
[2019-02-25] MEDS: FOLIC ACID 1MG TABLET PO SCH (09:13)
[2019-02-25] MEDS: MULTIVITAMINS,THER W-MINERALS TABLET PO SCH (09:13)
[2019-02-25] MEDS: RIVAROXABAN 20 MG TABLET PO SCH (17:44)
[2019-02-25] MEDS: DOXAZOSIN MESYLATE 2MG TABLET PO SCH (21:08)
[2019-02-25] MEDS: ATORVASTATIN CALCIUM 10MG TABLET PO SCH (21:08)
[2019-02-26] VITALS (11 sets, daily range): BP systolic 123–162; BP diastolic 53–108
[2019-02-26] MEDS: LACTULOSE 20G/30ML UDC PO SCH ×3 (06:00→22:23)
[2019-02-26] MEDS: FUROSEMIDE 20MG TABLET PO SCH ×2 (06:22→17:18)
[2019-02-26] MEDS: CLONIDINE 0.2MG TABLET PO SCH (06:22)
[2019-02-26] MEDS: GLIPIZIDE 5MG TABLET PO SCH (06:22)
[2019-02-26] MEDS: DILTIAZEM HCL 30MG TABLET PO SCH ×3 (06:22→22:22)
[2019-02-26 06:58] LABS: CHLORIDE 105 mEq/L (98-107)
[2019-02-26 07:04] LABS: PHOSPHORUS 2.8 mg/dL (2.5-4.9)
[2019-02-26] MEDS: BLOOD SUGAR DIAGNOSTIC STRIP TEST SCH ×4 (07:06→21:00)
[2019-02-26 07:20] LABS: HEMATOCRIT. 38.2 % (42.0-52.0); HEMOGLOBIN. 12.3 g/dL (14.0-18.0); MEAN CORPUSCULAR HEMOGLOBIN 26.6 pg (28.0-32.0); MEAN CORPUSCULAR VOLUME 82.5 fL (80.0-94.0); MEAN PLATELET VOLUME 8.6 fl (7.4-10.4); PLATELET 179 x1000/uL (130-400); RED BLOOD CELL COUNT 4.63 mill/uL (4.7-6.1); RED CELL DISTRIBUTION WIDTH 19.6 % (11.6-14.6)
[2019-02-26] MEDS: INSULIN LISPRO 100 UNITS/ML SUBCUT SCH ×4 (07:38→22:25)
[2019-02-26] MEDS: POTASSIUM CHLORIDE 20MEQ TABLET SR PO SCH (08:24)
[2019-02-26] MEDS: ASPIRIN 81MG EC TABLET PO SCH (08:24)
[2019-02-26] MEDS: LOSARTAN POTASSIUM 50 MG TABLET PO SCH ×2 (08:24→22:19)
[2019-02-26] MEDS: THIAMINE HCL 100MG TABLET PO SCH (08:25)
[2019-02-26] MEDS: FOLIC ACID 1MG TABLET PO SCH (08:25)
[2019-02-26] MEDS: MULTIVITAMINS,THER W-MINERALS TABLET PO SCH (08:25)
[2019-02-26] MEDS: ISOSORB DINIT/HYDRALAZINE HCL 20/37.5MG TABLET PO SCH ×3 (08:25→17:18)
[2019-02-26 13:58] LABS: PLATELET ESTIMATE NORMAL
[2019-02-26] MEDS: CLONIDINE 0.3MG TABLET PO SCH ×2 (14:55→22:21)
[2019-02-26] MEDS: RIVAROXABAN 20 MG TABLET PO SCH (17:18)
[2019-02-26] MEDS: DOXAZOSIN MESYLATE 2MG TABLET PO SCH (22:23)
[2019-02-26] MEDS: ATORVASTATIN CALCIUM 10MG TABLET PO SCH (22:23)
[2019-02-27] VITALS (7 sets, daily range): BP systolic 107–145; BP diastolic 40–93
[2019-02-27] MEDS: CLONIDINE 0.3MG TABLET PO SCH ×3 (06:00→22:22)
[2019-02-27] MEDS: DILTIAZEM HCL 30MG TABLET PO SCH ×3 (06:00→22:23)
[2019-02-27] MEDS: GLIPIZIDE 5MG TABLET PO SCH (06:25)
[2019-02-27] MEDS: LACTULOSE 20G/30ML UDC PO SCH ×3 (06:25→22:00)
[2019-02-27] MEDS: FUROSEMIDE 20MG TABLET PO SCH ×2 (06:25→17:18)
[2019-02-27] MEDS: INSULIN LISPRO 100 UNITS/ML SUBCUT SCH ×4 (06:29→22:06)
[2019-02-27] MEDS: BLOOD SUGAR DIAGNOSTIC STRIP TEST SCH ×4 (06:29→21:29)
[2019-02-27 07:43] LABS: BASOPHILS % 0.7 % (0.0-2.0); EOSINOPHILS % 1.2 % (0.0-5.0); HEMATOCRIT. 38.5 % (42.0-52.0); HEMOGLOBIN. 12.5 g/dL (14.0-18.0); LYMPHOCYTES % 26.1 % (20.0-50.0); MEAN CORPUSCULAR HEMOGLOBIN 26.6 pg (28.0-32.0); MEAN CORPUSCULAR VOLUME 82.1 fL (80.0-94.0); MONOCYTES % 10.3 % (2.0-8.0); NEUTROPHILS % 61.7 % (40.0-76.0); PLATELET 177 x1000/uL (130-400); RED BLOOD CELL COUNT 4.69 mill/uL (4.7-6.1); RED CELL DISTRIBUTION WIDTH 19.6 % (11.6-14.6)
[2019-02-27] MEDS: MULTIVITAMINS,THER W-MINERALS TABLET PO SCH (08:52)
[2019-02-27] MEDS: FOLIC ACID 1MG TABLET PO SCH (08:52)
[2019-02-27] MEDS: THIAMINE HCL 100MG TABLET PO SCH (08:53)
[2019-02-27] MEDS: LOSARTAN POTASSIUM 50 MG TABLET PO SCH ×2 (08:53→21:29)
[2019-02-27] MEDS: ISOSORB DINIT/HYDRALAZINE HCL 20/37.5MG TABLET PO SCH ×3 (08:53→17:18)
[2019-02-27] MEDS: ASPIRIN 81MG EC TABLET PO SCH (08:54)
[2019-02-27 10:17] LABS: CHLORIDE 104 mEq/L (98-107)
[2019-02-27 10:29] LABS: PHOSPHORUS 2.7 mg/dL (2.5-4.9)
[2019-02-27] MEDS: RIVAROXABAN 20 MG TABLET PO SCH (17:18)
[2019-02-27] MEDS: ATORVASTATIN CALCIUM 10MG TABLET PO SCH (21:29)
[2019-02-27] MEDS: DOXAZOSIN MESYLATE 2MG TABLET PO SCH (21:31)
[2019-02-27] MEDS: ACETAMINOPHEN 325MG TABLET PO PRN (22:26)
[2019-02-28] VITALS: BP 125/72
[2019-02-28 04:00] VITALS: BP 133/86
[2019-02-28] MEDS: LACTULOSE 20G/30ML UDC PO SCH ×3 (05:33→23:55)
[2019-02-28] MEDS: CLONIDINE 0.3MG TABLET PO SCH ×3 (05:45→23:55)
[2019-02-28] MEDS: DILTIAZEM HCL 30MG TABLET PO SCH ×3 (05:46→23:55)
[2019-02-28] MEDS: FUROSEMIDE 20MG TABLET PO SCH ×2 (05:46→17:21)
[2019-02-28] MEDS: INSULIN LISPRO 100 UNITS/ML SUBCUT SCH ×3 (06:08→17:21)
[2019-02-28] MEDS: BLOOD SUGAR DIAGNOSTIC STRIP TEST SCH ×4 (06:27→21:00)
[2019-02-28] MEDS: GLIPIZIDE 5MG TABLET PO SCH (06:40)
[2019-02-28 07:59] LABS: BASOPHILS % 0.8 % (0.0-2.0); EOSINOPHILS % 1.4 % (0.0-5.0); HEMATOCRIT. 36.1 % (42.0-52.0); HEMOGLOBIN. 11.5 g/dL (14.0-18.0); LYMPHOCYTES % 27.8 % (20.0-50.0); MEAN CORPUSCULAR VOLUME 81.8 fL (80.0-94.0); MEAN PLATELET VOLUME 8.5 fl (7.4-10.4); MONOCYTES % 12.4 % (2.0-8.0); NEUTROPHILS % 57.6 % (40.0-76.0); PLATELET 153 x1000/uL (130-400); RED BLOOD CELL COUNT 4.42 mill/uL (4.7-6.1); RED CELL DISTRIBUTION WIDTH 19.1 % (11.6-14.6)
[2019-02-28 08:00] VITALS: BP_SYST 123; BP_SYST 146; BP_DIAS 79; BP_DIAS 85
[2019-02-28 08:25] LABS: CHLORIDE 106 mEq/L (98-107)
[2019-02-28 08:33] LABS: PHOSPHORUS 2.5 mg/dL (2.5-4.9)
[2019-02-28] MEDS: THIAMINE HCL 100MG TABLET PO SCH (08:46)
[2019-02-28] MEDS: MULTIVITAMINS,THER W-MINERALS TABLET PO SCH (08:46)
[2019-02-28] MEDS: ASPIRIN 81MG EC TABLET PO SCH (08:46)
[2019-02-28] MEDS: LOSARTAN POTASSIUM 50 MG TABLET PO SCH ×2 (08:46→23:55)
[2019-02-28] MEDS: FOLIC ACID 1MG TABLET PO SCH (08:46)
[2019-02-28] MEDS: ISOSORB DINIT/HYDRALAZINE HCL 20/37.5MG TABLET PO SCH ×3 (08:47→16:40)
[2019-02-28 12:10] VITALS: BP 119/91
[2019-02-28] MEDS: ACETAMINOPHEN 325MG TABLET PO PRN ×2 (14:28→23:56)
[2019-02-28 15:54] VITALS: BP 121/52
[2019-02-28] MEDS: RIVAROXABAN 20 MG TABLET PO SCH (16:39)
[2019-02-28 20:00] VITALS: BP 126/75
[2019-02-28] MEDS: ATORVASTATIN CALCIUM 10MG TABLET PO SCH (23:55)
[2019-03-01] VITALS: BP 143/87
[2019-03-01] MEDS: DOXAZOSIN MESYLATE 2MG TABLET PO SCH ×2 (00:10→22:17)
[2019-03-01] MEDS: INSULIN LISPRO 100 UNITS/ML SUBCUT SCH ×5 (00:18→21:00)
[2019-03-01 04:00] VITALS: BP 128/78
[2019-03-01] MEDS: DILTIAZEM HCL 30MG TABLET PO SCH ×3 (05:15→22:04)
[2019-03-01] MEDS: FUROSEMIDE 20MG TABLET PO SCH ×2 (05:15→17:29)
[2019-03-01] MEDS: CLONIDINE 0.3MG TABLET PO SCH ×3 (05:15→22:04)
[2019-03-01] MEDS: LACTULOSE 20G/30ML UDC PO SCH ×3 (05:15→22:04)
[2019-03-01] MEDS: BLOOD SUGAR DIAGNOSTIC STRIP TEST SCH ×4 (05:21→21:00)
[2019-03-01] MEDS: GLIPIZIDE 5MG TABLET PO SCH (06:23)
[2019-03-01 07:05] LABS: CHLORIDE 106 mEq/L (98-107)
[2019-03-01 07:20] LABS: PHOSPHORUS 2.1 mg/dL (2.5-4.9)
[2019-03-01 07:29] LABS: BASOPHILS % 1.3 % (0.0-2.0); EOSINOPHILS % 1.5 % (0.0-5.0); HEMATOCRIT. 34.4 % (42.0-52.0); LYMPHOCYTES % 26.6 % (20.0-50.0); MEAN CORPUSCULAR HEMOGLOBIN 26.2 pg (28.0-32.0); MEAN CORPUSCULAR VOLUME 82.3 fL (80.0-94.0); MEAN PLATELET VOLUME 8.8 fl (7.4-10.4); MONOCYTES % 12.5 % (2.0-8.0); NEUTROPHILS % 58.1 % (40.0-76.0); PLATELET 162 x1000/uL (130-400); RED BLOOD CELL COUNT 4.19 mill/uL (4.7-6.1); RED CELL DISTRIBUTION WIDTH 18.6 % (11.6-14.6)
[2019-03-01 08:00] VITALS: BP 139/64
[2019-03-01] MEDS: ISOSORB DINIT/HYDRALAZINE HCL 20/37.5MG TABLET PO SCH ×3 (09:07→17:29)
[2019-03-01] MEDS: FOLIC ACID 1MG TABLET PO SCH (09:07)
[2019-03-01] MEDS: LOSARTAN POTASSIUM 50 MG TABLET PO SCH ×2 (09:07→22:04)
[2019-03-01] MEDS: MULTIVITAMINS,THER W-MINERALS TABLET PO SCH (09:07)
[2019-03-01] MEDS: THIAMINE HCL 100MG TABLET PO SCH (09:08)
[2019-03-01] MEDS: ASPIRIN 81MG EC TABLET PO SCH (09:08)
[2019-03-01 12:00] VITALS: BP 128/86
[2019-03-01] MEDS: ACETAMINOPHEN 325MG TABLET PO PRN ×2 (14:11→22:05)
[2019-03-01] MEDS ORDERED: SODIUM PHOS,M-BASIC-D-BASIC 15 MM in DEXT 5% WATER 245 ML IV NR (15:30)
[2019-03-01 16:00] VITALS: BP 120/64
[2019-03-01] MEDS: RIVAROXABAN 20 MG TABLET PO SCH (17:29)
[2019-03-01 20:00] VITALS: BP 117/61
[2019-03-01] MEDS: ATORVASTATIN CALCIUM 10MG TABLET PO SCH (22:04)
[2019-03-02] VITALS: BP 111/70
[2019-03-02 04:00] VITALS: BP 126/78
[2019-03-02] MEDS: CLONIDINE 0.3MG TABLET PO SCH ×3 (05:02→22:42)
[2019-03-02] MEDS: FUROSEMIDE 20MG TABLET PO SCH ×2 (05:02→17:21)
[2019-03-02] MEDS: LACTULOSE 20G/30ML UDC PO SCH ×3 (05:02→22:00)
[2019-03-02] MEDS: DILTIAZEM HCL 30MG TABLET PO SCH ×3 (05:02→22:00)
[2019-03-02 05:38] LABS: EOSINOPHILS % 1.8 % (0.0-5.0); HEMATOCRIT. 33.5 % (42.0-52.0); HEMOGLOBIN. 10.8 g/dL (14.0-18.0); LYMPHOCYTES % 28.2 % (20.0-50.0); MEAN CORPUSCULAR HEMOGLOBIN 26.5 pg (28.0-32.0); MEAN CORPUSCULAR VOLUME 82.5 fL (80.0-94.0); MONOCYTES % 12.1 % (2.0-8.0); NEUTROPHILS % 56.9 % (40.0-76.0); PLATELET 149 x1000/uL (130-400); RED BLOOD CELL COUNT 4.06 mill/uL (4.7-6.1); RED CELL DISTRIBUTION WIDTH 18.7 % (11.6-14.6)
[2019-03-02 05:42] LABS: CHLORIDE 104 mEq/L (98-107)
[2019-03-02 05:51] LABS: PHOSPHORUS 3.1 mg/dL (2.5-4.9)
[2019-03-02] MEDS: GLIPIZIDE 5MG TABLET PO SCH (06:28)
[2019-03-02] MEDS: BLOOD SUGAR DIAGNOSTIC STRIP TEST SCH ×4 (06:31→21:00)
[2019-03-02] MEDS: INSULIN LISPRO 100 UNITS/ML SUBCUT SCH ×4 (06:33→23:03)
[2019-03-02 08:00] VITALS: BP 130/64
[2019-03-02] MEDS: THIAMINE HCL 100MG TABLET PO SCH (08:54)
[2019-03-02] MEDS: ISOSORB DINIT/HYDRALAZINE HCL 20/37.5MG TABLET PO SCH ×3 (08:54→17:00)
[2019-03-02] MEDS: LOSARTAN POTASSIUM 50 MG TABLET PO SCH ×2 (08:54→22:42)
[2019-03-02] MEDS: FOLIC ACID 1MG TABLET PO SCH (08:54)
[2019-03-02] MEDS: MULTIVITAMINS,THER W-MINERALS TABLET PO SCH (08:54)
[2019-03-02] MEDS: ASPIRIN 81MG EC TABLET PO SCH (08:54)
[2019-03-02 12:00] VITALS: BP 123/64
[2019-03-02 16:00] VITALS: BP 110/58
[2019-03-02] MEDS: ACETAMINOPHEN 325MG TABLET PO PRN ×2 (17:21→22:44)
[2019-03-02] MEDS: RIVAROXABAN 20 MG TABLET PO SCH (17:21)
[2019-03-02 20:00] VITALS: BP 128/60
[2019-03-02] MEDS: ATORVASTATIN CALCIUM 10MG TABLET PO SCH (22:42)
[2019-03-02] MEDS: DOXAZOSIN MESYLATE 2MG TABLET PO SCH (23:09)
[2019-03-03] VITALS (7 sets, daily range): BP systolic 111–136; BP diastolic 64–85
[2019-03-03] MEDS: FUROSEMIDE 20MG TABLET PO SCH ×2 (05:19→17:42)
[2019-03-03] MEDS: DILTIAZEM HCL 30MG TABLET PO SCH ×3 (05:19→21:36)
[2019-03-03] MEDS: LACTULOSE 20G/30ML UDC PO SCH ×2 (05:21→13:44)
[2019-03-03] MEDS: INSULIN LISPRO 100 UNITS/ML SUBCUT SCH ×4 (06:50→21:40)
[2019-03-03] MEDS: BLOOD SUGAR DIAGNOSTIC STRIP TEST SCH ×4 (06:50→21:37)
[2019-03-03] MEDS: CLONIDINE 0.3MG TABLET PO SCH ×3 (06:51→21:37)
[2019-03-03] MEDS: GLIPIZIDE 5MG TABLET PO SCH (06:51)
[2019-03-03] MEDS: MULTIVITAMINS,THER W-MINERALS TABLET PO SCH (08:54)
[2019-03-03] MEDS: THIAMINE HCL 100MG TABLET PO SCH (08:54)
[2019-03-03] MEDS: LOSARTAN POTASSIUM 50 MG TABLET PO SCH ×2 (08:54→21:36)
[2019-03-03] MEDS: ASPIRIN 81MG EC TABLET PO SCH (08:54)
[2019-03-03] MEDS: FOLIC ACID 1MG TABLET PO SCH (08:54)
[2019-03-03] MEDS: ISOSORB DINIT/HYDRALAZINE HCL 20/37.5MG TABLET PO SCH ×3 (08:55→17:42)
[2019-03-03] MEDS: ACETAMINOPHEN 325MG TABLET PO PRN ×2 (09:04→17:43)
[2019-03-03] MEDS ORDERED: POLYVINYL ALCOHOL OPHTH DROPS 15ML BOTHEYE PRN (15:45)
[2019-03-03] MEDS: RIVAROXABAN 20 MG TABLET PO SCH (17:42)
[2019-03-03] MEDS: ATORVASTATIN CALCIUM 10MG TABLET PO SCH (21:37)
[2019-03-03] MEDS: DOXAZOSIN MESYLATE 2MG TABLET PO SCH (21:37)
[2019-03-04] VITALS: BP 126/82
[2019-03-04] MEDS: ACETAMINOPHEN 325MG TABLET PO PRN ×3 (02:01→23:42)
[2019-03-04 04:00] VITALS: BP 139/91
[2019-03-04] MEDS: DILTIAZEM HCL 30MG TABLET PO SCH ×3 (05:29→21:41)
[2019-03-04] MEDS: CLONIDINE 0.3MG TABLET PO SCH ×3 (05:30→21:41)
[2019-03-04] MEDS: FUROSEMIDE 20MG TABLET PO SCH ×2 (05:30→17:34)
[2019-03-04 06:28] LABS: CHLORIDE 104 mEq/L (98-107)
[2019-03-04 06:31] LABS: EOSINOPHILS % 1.8 % (0.0-5.0); HEMOGLOBIN. 10.7 g/dL (14.0-18.0); LYMPHOCYTES % 31.3 % (20.0-50.0); MEAN CORPUSCULAR HEMOGLOBIN 26.1 pg (28.0-32.0); MEAN CORPUSCULAR VOLUME 80.7 fL (80.0-94.0); MEAN PLATELET VOLUME 9.2 fl (7.4-10.4); MONOCYTES % 12.7 % (2.0-8.0); NEUTROPHILS % 53.2 % (40.0-76.0); PLATELET 153 x1000/uL (130-400)
[2019-03-04] MEDS: INSULIN LISPRO 100 UNITS/ML SUBCUT SCH ×4 (06:32→21:41)
[2019-03-04] MEDS: GLIPIZIDE 5MG TABLET PO SCH (06:32)
[2019-03-04] MEDS: BLOOD SUGAR DIAGNOSTIC STRIP TEST SCH ×4 (06:33→21:42)
[2019-03-04 06:38] LABS: PHOSPHORUS 3.5 mg/dL (2.5-4.9)
[2019-03-04 08:51] VITALS: BP 149/90
[2019-03-04] MEDS: LOSARTAN POTASSIUM 50 MG TABLET PO SCH ×2 (09:18→21:41)
[2019-03-04] MEDS: ISOSORB DINIT/HYDRALAZINE HCL 20/37.5MG TABLET PO SCH ×3 (09:20→17:33)
[2019-03-04] MEDS: MULTIVITAMINS,THER W-MINERALS TABLET PO SCH (09:21)
[2019-03-04] MEDS: THIAMINE HCL 100MG TABLET PO SCH (09:21)
[2019-03-04] MEDS: ASPIRIN 81MG EC TABLET PO SCH (09:29)
[2019-03-04] MEDS: FOLIC ACID 1MG TABLET PO SCH (09:29)
[2019-03-04 12:17] VITALS: BP 130/84
[2019-03-04 16:01] VITALS: BP 130/82
[2019-03-04] MEDS: RIVAROXABAN 20 MG TABLET PO SCH (17:33)
[2019-03-04] MEDS: ATORVASTATIN CALCIUM 10MG TABLET PO SCH (21:41)
[2019-03-04] MEDS: DOXAZOSIN MESYLATE 2MG TABLET PO SCH (21:42)
[2019-03-05] VITALS: BP 118/82
[2019-03-05 04:00] VITALS: BP 113/83
[2019-03-05] MEDS: DILTIAZEM HCL 30MG TABLET PO SCH ×3 (06:00→21:34)
[2019-03-05] MEDS: CLONIDINE 0.3MG TABLET PO SCH ×3 (06:15→21:33)
[2019-03-05] MEDS: ACETAMINOPHEN 325MG TABLET PO PRN (06:15)
[2019-03-05] MEDS: FUROSEMIDE 20MG TABLET PO SCH ×2 (06:15→17:31)
[2019-03-05] MEDS: BLOOD SUGAR DIAGNOSTIC STRIP TEST SCH ×4 (06:16→21:24)
[2019-03-05] MEDS: INSULIN LISPRO 100 UNITS/ML SUBCUT SCH ×4 (06:22→21:34)
[2019-03-05] MEDS: GLIPIZIDE 5MG TABLET PO SCH (06:22)
[2019-03-05 08:00] VITALS: BP 118/71
[2019-03-05] MEDS: ISOSORB DINIT/HYDRALAZINE HCL 20/37.5MG TABLET PO SCH ×3 (09:14→17:32)
[2019-03-05] MEDS: THIAMINE HCL 100MG TABLET PO SCH (09:14)
[2019-03-05] MEDS: ASPIRIN 81MG EC TABLET PO SCH (09:14)
[2019-03-05] MEDS: FOLIC ACID 1MG TABLET PO SCH (09:14)
[2019-03-05] MEDS: LOSARTAN POTASSIUM 50 MG TABLET PO SCH ×2 (09:14→21:32)
[2019-03-05] MEDS: MULTIVITAMINS,THER W-MINERALS TABLET PO SCH (09:15)
[2019-03-05 12:00] VITALS: BP 120/63
[2019-03-05 16:00] VITALS: BP 121/73
[2019-03-05] MEDS: RIVAROXABAN 20 MG TABLET PO SCH (17:32)
[2019-03-05 20:00] VITALS: BP 112/73
[2019-03-05] MEDS: ATORVASTATIN CALCIUM 10MG TABLET PO SCH (21:32)
[2019-03-05] MEDS: DOXAZOSIN MESYLATE 2MG TABLET PO SCH (21:33)
[2019-03-06] VITALS (7 sets, daily range): BP systolic 125–162; BP diastolic 73–96
[2019-03-06] MEDS: ACETAMINOPHEN 325MG TABLET PO PRN (05:02)
[2019-03-06] MEDS: CLONIDINE 0.3MG TABLET PO SCH ×3 (05:09→22:09)
[2019-03-06] MEDS: FUROSEMIDE 20MG TABLET PO SCH ×2 (05:09→17:43)
[2019-03-06] MEDS: DILTIAZEM HCL 30MG TABLET PO SCH ×3 (05:10→22:09)
[2019-03-06] MEDS: GLIPIZIDE 5MG TABLET PO SCH (06:22)
[2019-03-06] MEDS: INSULIN LISPRO 100 UNITS/ML SUBCUT SCH ×4 (06:23→20:48)
[2019-03-06] MEDS: BLOOD SUGAR DIAGNOSTIC STRIP TEST SCH ×4 (06:23→20:23)
[2019-03-06 07:20] LABS: BASOPHILS % 1.7 % (0.0-2.0); HEMATOCRIT. 32.4 % (42.0-52.0); HEMOGLOBIN. 10.5 g/dL (14.0-18.0); LYMPHOCYTES % 36.8 % (20.0-50.0); MEAN CORPUSCULAR HEMOGLOBIN 26.1 pg (28.0-32.0); MEAN CORPUSCULAR VOLUME 80.5 fL (80.0-94.0); MONOCYTES % 11.5 % (2.0-8.0); PLATELET 193 x1000/uL (130-400); RED BLOOD CELL COUNT 4.02 mill/uL (4.7-6.1); RED CELL DISTRIBUTION WIDTH 17.5 % (11.6-14.6)
[2019-03-06 08:28] LABS: CHLORIDE 107 mEq/L (98-107)
[2019-03-06 08:38] LABS: PHOSPHORUS 3.6 mg/dL (2.5-4.9)
[2019-03-06] MEDS: ISOSORB DINIT/HYDRALAZINE HCL 20/37.5MG TABLET PO SCH ×3 (08:58→17:43)
[2019-03-06] MEDS: FOLIC ACID 1MG TABLET PO SCH (08:58)
[2019-03-06] MEDS: LOSARTAN POTASSIUM 50 MG TABLET PO SCH ×2 (08:59→20:43)
[2019-03-06] MEDS: ASPIRIN 81MG EC TABLET PO SCH (09:01)
[2019-03-06] MEDS: THIAMINE HCL 100MG TABLET PO SCH (09:01)
[2019-03-06] MEDS: MULTIVITAMINS,THER W-MINERALS TABLET PO SCH (09:04)
[2019-03-06] MEDS: RIVAROXABAN 20 MG TABLET PO SCH (17:42)
[2019-03-06] MEDS: DOXAZOSIN MESYLATE 2MG TABLET PO SCH (20:43)
[2019-03-06] MEDS: ATORVASTATIN CALCIUM 10MG TABLET PO SCH (20:43)
[2019-03-07] VITALS: BP 151/86
[2019-03-07] MEDS: ACETAMINOPHEN 325MG TABLET PO PRN (01:16)
[2019-03-07 04:00] VITALS: BP 158/77
[2019-03-07] MEDS: BLOOD SUGAR DIAGNOSTIC STRIP TEST SCH ×2 (05:57→12:07)
[2019-03-07] MEDS: INSULIN LISPRO 100 UNITS/ML SUBCUT SCH ×2 (06:11→12:07)
[2019-03-07] MEDS: FUROSEMIDE 20MG TABLET PO SCH (06:24)
[2019-03-07] MEDS: GLIPIZIDE 5MG TABLET PO SCH (06:25)
[2019-03-07] MEDS: CLONIDINE 0.3MG TABLET PO SCH ×2 (06:25→14:00)
[2019-03-07] MEDS: DILTIAZEM HCL 30MG TABLET PO SCH ×2 (06:25→14:00)
[2019-03-07 08:00] VITALS: BP 169/96
[2019-03-07] MEDS: ISOSORB DINIT/HYDRALAZINE HCL 20/37.5MG TABLET PO SCH ×2 (09:27→13:00)
[2019-03-07] MEDS: MULTIVITAMINS,THER W-MINERALS TABLET PO SCH (09:28)
[2019-03-07] MEDS: LOSARTAN POTASSIUM 50 MG TABLET PO SCH (09:28)
[2019-03-07] MEDS: THIAMINE HCL 100MG TABLET PO SCH (09:28)
[2019-03-07] MEDS: FOLIC ACID 1MG TABLET PO SCH (09:28)
[2019-03-07] MEDS: ASPIRIN 81MG EC TABLET PO SCH (09:40)
[2019-03-07 12:00] VITALS: BP 162/91
[2019-03-07 14:12] VITALS: BP 160/90
== END 2019-03-07 14:40 | disposition home or self-care (01) | DRG 133 ==
LOC: ER 10:07 → 3WST 12:32 → EDBEDREQTM 12:33 → EDBEDREQSVC 12:33 → EDBEDREQ 12:33 → ENRESERV 14:07 → 8WST 02-27 01:55
PROVIDERS: ADMIT Internal Medicine; ATTEND Internal Medicine
PROC: 4A00X4Z Measurement of Central Nervous Electrical Activity, External Approach (ICD-10-PCS; principal; 2019-02-22)
PROC: 0JBQ0ZZ Excision of Right Foot Subcutaneous Tissue and Fascia, Open Approach (ICD-10-PCS; 2019-03-06)
DX: J96.90 Respiratory failure, unspecified, unspecified whether with hypoxia or hypercapnia (principal); I63.9 Cerebral infarction, unspecified; N17.0 Acute kidney failure with tubular necrosis; G92 Toxic encephalopathy; I44.2 Atrioventricular block, complete; E46 Unspecified protein-calorie malnutrition; E72.20 Disorder of urea cycle metabolism, unspecified; L89.159 Pressure ulcer of sacral region, unspecified stage; Y92.89 Other specified places as the place of occurrence of the external cause; I48.92 Unspecified atrial flutter; E11.22 Type 2 diabetes mellitus with diabetic chronic kidney disease; I47.1 Supraventricular tachycardia; I48.91 Unspecified atrial fibrillation; I50.43 Acute on chronic combined systolic (congestive) and diastolic (congestive) heart failure; E87.2 Acidosis; L97.409 Non-pressure chronic ulcer of unspecified heel and midfoot with unspecified severity; E87.6 Hypokalemia; E11.65 Type 2 diabetes mellitus with hyperglycemia; E11.621 Type 2 diabetes mellitus with foot ulcer; D64.9 Anemia, unspecified; E11.51 Type 2 diabetes mellitus with diabetic peripheral angiopathy without gangrene; F10.10 Alcohol abuse, uncomplicated; F14.10 Cocaine abuse, uncomplicated; F15.129 Other stimulant abuse with intoxication, unspecified; F23 Brief psychotic disorder; F12.10 Cannabis abuse, uncomplicated; F17.210 Nicotine dependence, cigarettes, uncomplicated; I42.9 Cardiomyopathy, unspecified; E11.42 Type 2 diabetes mellitus with diabetic polyneuropathy; I13.0 Hypertensive heart and chronic kidney disease with heart failure and stage 1 through stage 4 chronic kidney disease, or unspecified chronic kidney disease; N18.9 Chronic kidney disease, unspecified; R74.0 Nonspecific elevation of levels of transaminase and lactic acid dehydrogenase [LDH]; K76.1 Chronic passive congestion of liver; Z71.51 Drug abuse counseling and surveillance of drug abuser; Z59.0 Homelessness; Z83.3 Family history of diabetes mellitus; Z82.49 Family history of ischemic heart disease and other diseases of the circulatory system; Z79.01 Long term (current) use of anticoagulants; Z86.73 Personal history of transient ischemic attack (TIA), and cerebral infarction without residual deficits; Z91.19 Patient's noncompliance with other medical treatment and regimen; Z79.4 Long term (current) use of insulin
CPT/HCPCS: 36415; 36600; 70544; 70551; 71045; 76770; 80048; 80061; 80076; 80305; 80320; 82140; 82248; 82375; 82550; 82553; 82607; 82746; 82805; 82962; 83036; 83605; 83735; 83880; 84100; 84145; 84439; 84443; 84481; 84484; 86705; 86709; 86803; 87340; 87389; 92610; 93005; 93306; 93880; 93923; 93970; 96374; 96375; 97116; 97162; 97166; 97530; 97535; 99291; J0153; J0282; J1650; J1815; J1940; J3475; J3480; J3490; J7030; J7060; A4315; G0480

== ENCOUNTER 2019-03-11 22:14 | Inpatient (IN) | payer MEDICAID, OTHER ==
[~2019-03-11] VITALS: Ht 182.9 cm; Wt 92.5 kg
[2019-03-11] MEDS ORDERED: ONDANSETRON HCL 4MG/2ML INJ IV STA (22:48)
[2019-03-11] MEDS ORDERED: LEVETIRACETAM 500MG PREMIX 100 ML IV ONE (23:00)
[2019-03-11] MEDS ORDERED: AMIODARONE HCL 150 MG in DEXT 5% WATER 100 ML IV ONE (23:00)
[2019-03-11] MEDS ORDERED: AMIODARONE HCL 900 MG in DEXT 5% WATER 500 ML IV ONE (23:00)
[2019-03-11] MEDS ORDERED: AMIODARONE HCL 50MG/ML 3ML VIAL IV ONE ×2 (23:00→23:32)
[2019-03-11] MEDS ORDERED: MAGNESIUM 4 G PREMIX 100 ML IV ONE (23:00)
[2019-03-11] MEDS ORDERED: LORAZEPAM 2MG/ML CPJ IV ONE (23:00)
[2019-03-11] MEDS ORDERED: MAGNESIUM SULFATE 4G IN WATER 100ML PREMIX IV ONE (23:32)
[2019-03-11 23:36] LABS: BASOPHILS % 1.4 % (0.0-2.0); EOSINOPHILS % 0.3 % (0.0-5.0); HEMATOCRIT. 41.5 % (42.0-52.0); HEMOGLOBIN. 13.2 g/dL (14.0-18.0); LYMPHOCYTES % 19.5 % (20.0-50.0); MEAN CORPUSCULAR HEMOGLOBIN 25.9 pg (28.0-32.0); MEAN CORPUSCULAR VOLUME 81.2 fL (80.0-94.0); MEAN PLATELET VOLUME 9.5 fl (7.4-10.4); MONOCYTES % 9.6 % (2.0-8.0); NEUTROPHILS % 69.2 % (40.0-76.0); PLATELET 332 x1000/uL (130-400); RED BLOOD CELL COUNT 5.11 mill/uL (4.7-6.1); RED CELL DISTRIBUTION WIDTH 17.7 % (11.6-14.6)
[2019-03-11 23:42] LABS: CHLORIDE 107 mEq/L (98-107)
[2019-03-11 23:46] LABS: ETHANOL BLOOD < 10 mg/dL
[2019-03-11 23:57] LABS: INR 1.7; PROTHROMBIN TIME 16.9 sec (9.6-11.0)
[2019-03-12] VITALS (53 sets, daily range): BP systolic 117–175; BP diastolic 46–135
[2019-03-12] MEDS ORDERED: ONDANSETRON HCL 4MG/2ML INJ IV PRN (03:15)
[2019-03-12] MEDS: LORAZEPAM 2MG/ML CPJ IV PRN ×2 (05:06→09:12)
[2019-03-12] MEDS: DEXT 5%/0.45% NACL 1000ML 1,000 ML IV SCH ×2 (05:29→22:57)
[2019-03-12 05:37] LABS: CHLORIDE 108 mEq/L (98-107)
[2019-03-12 05:46] LABS: CREATINE KINASE 146 IU/L (39-308)
[2019-03-12] MEDS: MULTIVITAMINS,THER W-MINERALS TABLET PO SCH (08:23)
[2019-03-12] MEDS: THIAMINE HCL 100MG TABLET PO SCH (08:23)
[2019-03-12] MEDS: ENOXAPARIN 30MG/0.3ML SYR SUBCUT SCH ×2 (08:24→21:48)
[2019-03-12] MEDS: CLONIDINE 0.1MG TABLET PO PRN (08:46)
[2019-03-12] MEDS: FOLIC ACID 1MG TABLET PO SCH (09:04)
[2019-03-12] MEDS ORDERED: DILTIAZEM HCL 5MG/ML 5ML VIAL IV PRN (09:45)
[2019-03-12] MEDS: HYDRALAZINE 20MG/ML VIAL IV PRN (10:14)
[2019-03-12] MEDS: LEVETIRACETAM 500 MG in SODIUM CHLORIDE 0.9% 100 ML IV SCH ×2 (10:15→21:48)
[2019-03-12 12:16] LABS: *AMPHETAMINES SCREEN URINE NEGATIVE (NEGATIVE); *BARBITURATES SCREEN URINE NEGATIVE (NEGATIVE); *BENZODIAZEPINES SCREEN URINE NEGATIVE (NEGATIVE); *COCAINE SCREEN URINE PRESUMTIVE POSITIVE (NEGATIVE); METHADONE URINE SCREEN NEGATIVE (NEGATIVE)
[2019-03-12 12:17] LABS: CANNABINOID URINE SCREEN PRESUMTIVE POSITIVE (NEGATIVE); OPIATES URINE SCREEN NEGATIVE (NEGATIVE); PHENCYCLIDINE URINE SCREEN PRESUMTIVE POSITIVE (NEGATIVE)
[2019-03-12] MEDS: FUROSEMIDE 20MG/2ML VIAL IVP SCH (13:00)
[2019-03-12] MEDS ORDERED: IPRATROPIUM/ALBUTEROL 0.5-3(2.5)MG/3ML NEB HHN PRN (13:00)
[2019-03-12] MEDS ORDERED: FUROSEMIDE 40MG/4ML VIAL IVP NR (13:15)
[2019-03-12] MEDS: DILTIAZEM HCL 60MG TABLET PO SCH ×2 (13:18→21:49)
[2019-03-12] MEDS: NITROGLYCERIN OINT 1GM/INCH UDPKT TD SCH ×2 (13:18→21:58)
[2019-03-12] MEDS: IPRATROPIUM BROMIDE (0.02%) 0.5MG/2.5ML NEB HHN SCH ×2 (16:54→20:35)
[2019-03-12] MEDS ORDERED: DEXTROSE 50% WATER 50ML SYRINGE IV PRN ×2 (17:45)
[2019-03-12] MEDS: TAMSULOSIN HCL 0.4MG SR CAPSULE PO SCH (21:48)
[2019-03-12] MEDS: INSULIN LISPRO 100 UNITS/ML SUBCUT SCH (21:59)
[2019-03-12] MEDS: BLOOD SUGAR DIAGNOSTIC STRIP TEST SCH (21:59)
[2019-03-13] VITALS (43 sets, daily range): BP systolic 87–172; BP diastolic 23–125
[2019-03-13] MEDS: LORAZEPAM 2MG/ML CPJ IV PRN ×3 (00:16→22:33)
[2019-03-13] MEDS: IPRATROPIUM BROMIDE (0.02%) 0.5MG/2.5ML NEB HHN SCH ×4 (02:00→21:22)
[2019-03-13 05:22] LABS: EOSINOPHILS % 1.7 % (0.0-5.0); HEMATOCRIT. 36.7 % (42.0-52.0); HEMOGLOBIN. 11.8 g/dL (14.0-18.0); LYMPHOCYTES % 25.1 % (20.0-50.0); MEAN CORPUSCULAR HEMOGLOBIN 25.9 pg (28.0-32.0); MEAN CORPUSCULAR VOLUME 80.9 fL (80.0-94.0); NEUTROPHILS % 60.2 % (40.0-76.0); PLATELET 266 x1000/uL (130-400); RED BLOOD CELL COUNT 4.54 mill/uL (4.7-6.1); RED CELL DISTRIBUTION WIDTH 17.5 % (11.6-14.6)
[2019-03-13 05:33] LABS: CHLORIDE 110 mEq/L (98-107)
[2019-03-13 05:41] LABS: HDL CHOLESTEROL 40 mg/dL (40-59)
[2019-03-13 05:44] LABS: LDL CHOLESTEROL 77 mg/dL (5-100)
[2019-03-13] MEDS: NITROGLYCERIN OINT 1GM/INCH UDPKT TD SCH ×3 (06:13→21:18)
[2019-03-13] MEDS: DILTIAZEM HCL 60MG TABLET PO SCH ×3 (06:13→21:19)
[2019-03-13] MEDS: BLOOD SUGAR DIAGNOSTIC STRIP TEST SCH ×4 (08:01→21:11)
[2019-03-13] MEDS: LEVETIRACETAM 500 MG in SODIUM CHLORIDE 0.9% 100 ML IV SCH ×2 (08:34→21:46)
[2019-03-13] MEDS: HYDRALAZINE 20MG/ML VIAL IV PRN (08:34)
[2019-03-13] MEDS: INSULIN LISPRO 100 UNITS/ML SUBCUT SCH ×4 (08:34→21:19)
[2019-03-13] MEDS: FOLIC ACID 1MG TABLET PO SCH (08:35)
[2019-03-13] MEDS: FUROSEMIDE 20MG/2ML VIAL IVP SCH ×2 (08:35→16:46)
[2019-03-13] MEDS: ENOXAPARIN 30MG/0.3ML SYR SUBCUT SCH (08:35)
[2019-03-13] MEDS: THIAMINE HCL 100MG TABLET PO SCH (08:35)
[2019-03-13] MEDS: MULTIVITAMINS,THER W-MINERALS TABLET PO SCH (08:35)
[2019-03-13] MEDS ORDERED: LOSARTAN POTASSIUM 25 MG TABLET PO SCH (11:00)
[2019-03-13] MEDS ORDERED: HYDRALAZINE HCL 50MG TABLET PO SCH (14:00)
[2019-03-13] MEDS: RIVAROXABAN 20 MG TABLET PO SCH (16:47)
[2019-03-13] MEDS: HYDRALAZINE HCL 25MG TABLET PO SCH (21:18)
[2019-03-13] MEDS: TAMSULOSIN HCL 0.4MG SR CAPSULE PO SCH (21:18)
[2019-03-14] VITALS (17 sets, daily range): BP systolic 117–176; BP diastolic 69–105
[2019-03-14] MEDS: IPRATROPIUM BROMIDE (0.02%) 0.5MG/2.5ML NEB HHN SCH ×4 (02:24→20:25)
[2019-03-14 05:32] LABS: CHLORIDE 109 mEq/L (98-107)
[2019-03-14 05:33] LABS: BASOPHILS % 1.5 % (0.0-2.0); EOSINOPHILS % 2.5 % (0.0-5.0); HEMATOCRIT. 35.6 % (42.0-52.0); HEMOGLOBIN. 11.4 g/dL (14.0-18.0); LYMPHOCYTES % 21.3 % (20.0-50.0); MEAN CORPUSCULAR HEMOGLOBIN 25.9 pg (28.0-32.0); MEAN CORPUSCULAR VOLUME 80.7 fL (80.0-94.0); MONOCYTES % 11.3 % (2.0-8.0); NEUTROPHILS % 63.4 % (40.0-76.0); PLATELET 270 x1000/uL (130-400); RED BLOOD CELL COUNT 4.41 mill/uL (4.7-6.1); RED CELL DISTRIBUTION WIDTH 18.2 % (11.6-14.6)
[2019-03-14] MEDS: DILTIAZEM HCL 60MG TABLET PO SCH ×3 (05:49→21:24)
[2019-03-14] MEDS: NITROGLYCERIN OINT 1GM/INCH UDPKT TD SCH (05:49)
[2019-03-14] MEDS: HYDRALAZINE HCL 25MG TABLET PO SCH (05:49)
[2019-03-14] MEDS: BLOOD SUGAR DIAGNOSTIC STRIP TEST SCH ×4 (07:58→21:11)
[2019-03-14] MEDS: INSULIN LISPRO 100 UNITS/ML SUBCUT SCH ×4 (07:59→21:40)
[2019-03-14] MEDS: THIAMINE HCL 100MG TABLET PO SCH (08:46)
[2019-03-14] MEDS: FUROSEMIDE 20MG/2ML VIAL IVP SCH ×2 (08:46→17:20)
[2019-03-14] MEDS: FOLIC ACID 1MG TABLET PO SCH (08:46)
[2019-03-14] MEDS: LEVETIRACETAM 500 MG in SODIUM CHLORIDE 0.9% 100 ML IV SCH ×2 (08:46→21:25)
[2019-03-14] MEDS: MULTIVITAMINS,THER W-MINERALS TABLET PO SCH (08:46)
[2019-03-14] MEDS ORDERED: LOSARTAN POTASSIUM 50 MG TABLET PO SCH (09:00)
[2019-03-14] MEDS: CLONIDINE 0.1MG TABLET PO PRN (11:26)
[2019-03-14] MEDS: ISOSORB DINIT/HYDRALAZINE HCL 20/37.5MG TABLET PO SCH ×2 (13:58→21:23)
[2019-03-14] MEDS: RIVAROXABAN 20 MG TABLET PO SCH (17:20)
[2019-03-14] MEDS: LOSARTAN POTASSIUM 50 MG TABLET PO SCH (21:24)
[2019-03-14] MEDS: TAMSULOSIN HCL 0.4MG SR CAPSULE PO SCH (21:25)
[2019-03-15] VITALS: BP 148/83
[2019-03-15] MEDS: IPRATROPIUM BROMIDE (0.02%) 0.5MG/2.5ML NEB HHN SCH ×4 (02:12→20:00)
[2019-03-15 04:00] VITALS: BP 164/78
[2019-03-15] MEDS: CLONIDINE 0.1MG TABLET PO PRN (05:07)
[2019-03-15] MEDS: ISOSORB DINIT/HYDRALAZINE HCL 20/37.5MG TABLET PO SCH ×3 (06:47→21:59)
[2019-03-15] MEDS: DILTIAZEM HCL 60MG TABLET PO SCH (06:48)
[2019-03-15] MEDS: FUROSEMIDE 20MG/2ML VIAL IVP SCH ×2 (06:48→16:41)
[2019-03-15] MEDS: INSULIN LISPRO 100 UNITS/ML SUBCUT SCH ×4 (06:48→21:58)
[2019-03-15] MEDS: BLOOD SUGAR DIAGNOSTIC STRIP TEST SCH ×4 (06:48→21:00)
[2019-03-15 07:20] LABS: EOSINOPHILS % 2.3 % (0.0-5.0); HEMATOCRIT. 35.2 % (42.0-52.0); HEMOGLOBIN. 11.5 g/dL (14.0-18.0); LYMPHOCYTES % 25.3 % (20.0-50.0); MEAN CORPUSCULAR HEMOGLOBIN 26.2 pg (28.0-32.0); MEAN CORPUSCULAR VOLUME 80.2 fL (80.0-94.0); MEAN PLATELET VOLUME 8.9 fl (7.4-10.4); MONOCYTES % 9.3 % (2.0-8.0); NEUTROPHILS % 62.1 % (40.0-76.0); PLATELET 285 x1000/uL (130-400); RED BLOOD CELL COUNT 4.39 mill/uL (4.7-6.1); RED CELL DISTRIBUTION WIDTH 17.9 % (11.6-14.6)
[2019-03-15 07:21] LABS: CHLORIDE 108 mEq/L (98-107)
[2019-03-15 08:00] VITALS: BP 147/94
[2019-03-15] MEDS: FOLIC ACID 1MG TABLET PO SCH (08:22)
[2019-03-15] MEDS: THIAMINE HCL 100MG TABLET PO SCH (08:22)
[2019-03-15] MEDS: MULTIVITAMINS,THER W-MINERALS TABLET PO SCH (08:22)
[2019-03-15] MEDS: LEVETIRACETAM 500 MG in SODIUM CHLORIDE 0.9% 100 ML IV SCH ×2 (08:22→23:26)
[2019-03-15] MEDS: LOSARTAN POTASSIUM 50 MG TABLET PO SCH ×2 (08:22→21:58)
[2019-03-15] MEDS: MAGNESIUM OXIDE 400MG TABLET PO SCH (11:52)
[2019-03-15 12:00] VITALS: BP_SYST 158; BP_DIAS 87; BP_DIAS 97
[2019-03-15] MEDS: DILTIAZEM HCL 90MG TABLET PO SCH ×2 (12:53→17:44)
[2019-03-15 16:11] VITALS: BP 161/88
[2019-03-15] MEDS: RIVAROXABAN 20 MG TABLET PO SCH (16:41)
[2019-03-15 20:00] VITALS: BP 133/70
[2019-03-15] MEDS: TAMSULOSIN HCL 0.4MG SR CAPSULE PO SCH (21:59)
[2019-03-16] VITALS: BP 161/89
[2019-03-16] MEDS: IPRATROPIUM BROMIDE (0.02%) 0.5MG/2.5ML NEB HHN SCH ×4 (00:16→21:02)
[2019-03-16] MEDS: DILTIAZEM HCL 90MG TABLET PO SCH ×4 (00:45→18:22)
[2019-03-16 04:00] VITALS: BP 142/81
[2019-03-16] MEDS: LORAZEPAM 2MG/ML CPJ IV PRN ×2 (04:36→18:22)
[2019-03-16] MEDS: ISOSORB DINIT/HYDRALAZINE HCL 20/37.5MG TABLET PO SCH ×3 (05:56→21:29)
[2019-03-16] MEDS: FUROSEMIDE 20MG/2ML VIAL IVP SCH ×2 (06:31→18:21)
[2019-03-16] MEDS: INSULIN LISPRO 100 UNITS/ML SUBCUT SCH ×4 (06:31→21:35)
[2019-03-16] MEDS: BLOOD SUGAR DIAGNOSTIC STRIP TEST SCH ×4 (06:31→21:16)
[2019-03-16 08:00] VITALS: BP 148/81
[2019-03-16] MEDS: LOSARTAN POTASSIUM 50 MG TABLET PO SCH ×2 (08:41→21:29)
[2019-03-16] MEDS: LEVETIRACETAM 500 MG in SODIUM CHLORIDE 0.9% 100 ML IV SCH ×2 (08:41→21:29)
[2019-03-16] MEDS: MAGNESIUM OXIDE 400MG TABLET PO SCH (08:41)
[2019-03-16] MEDS: THIAMINE HCL 100MG TABLET PO SCH (08:41)
[2019-03-16] MEDS: FOLIC ACID 1MG TABLET PO SCH (08:41)
[2019-03-16] MEDS: MULTIVITAMINS,THER W-MINERALS TABLET PO SCH (08:41)
[2019-03-16 12:00] VITALS: BP 153/89
[2019-03-16] MEDS: RIVAROXABAN 20 MG TABLET PO SCH (18:22)
[2019-03-16 20:00] VITALS: BP 141/74
[2019-03-16] MEDS: TAMSULOSIN HCL 0.4MG SR CAPSULE PO SCH (21:29)
[2019-03-17] VITALS: BP 116/71
[2019-03-17] MEDS: DILTIAZEM HCL 90MG TABLET PO SCH ×4 (00:06→16:59)
[2019-03-17] MEDS: LORAZEPAM 2MG/ML CPJ IV PRN (00:06)
[2019-03-17] MEDS: IPRATROPIUM BROMIDE (0.02%) 0.5MG/2.5ML NEB HHN SCH ×4 (01:50→21:32)
[2019-03-17 04:00] VITALS: BP 152/84
[2019-03-17] MEDS: ISOSORB DINIT/HYDRALAZINE HCL 20/37.5MG TABLET PO SCH ×3 (06:22→23:44)
[2019-03-17] MEDS: FUROSEMIDE 20MG/2ML VIAL IVP SCH ×2 (06:22→16:59)
[2019-03-17] MEDS: BLOOD SUGAR DIAGNOSTIC STRIP TEST SCH ×4 (06:53→21:00)
[2019-03-17] MEDS: INSULIN LISPRO 100 UNITS/ML SUBCUT SCH ×4 (07:00→23:55)
[2019-03-17 09:25] VITALS: BP 149/76
[2019-03-17] MEDS: LEVETIRACETAM 500 MG in SODIUM CHLORIDE 0.9% 100 ML IV SCH (09:29)
[2019-03-17] MEDS: LOSARTAN POTASSIUM 50 MG TABLET PO SCH ×2 (09:29→23:44)
[2019-03-17] MEDS: MULTIVITAMINS,THER W-MINERALS TABLET PO SCH (09:29)
[2019-03-17] MEDS: FOLIC ACID 1MG TABLET PO SCH (09:29)
[2019-03-17] MEDS: THIAMINE HCL 100MG TABLET PO SCH (09:29)
[2019-03-17] MEDS: MAGNESIUM OXIDE 400MG TABLET PO SCH (09:29)
[2019-03-17 11:38] VITALS: BP 158/76
[2019-03-17 15:46] VITALS: BP 123/67
[2019-03-17] MEDS: RIVAROXABAN 20 MG TABLET PO SCH (16:58)
[2019-03-17 20:00] VITALS: BP 138/80
[2019-03-17] MEDS: TRAMADOL 50MG TABLET PO PRN (22:49)
[2019-03-17] MEDS: TAMSULOSIN HCL 0.4MG SR CAPSULE PO SCH (23:44)
[2019-03-18] VITALS: BP 151/83
[2019-03-18] MEDS: DILTIAZEM HCL 90MG TABLET PO SCH ×4 (00:22→17:24)
[2019-03-18] MEDS: LEVETIRACETAM 500MG TABLET PO SCH ×3 (00:22→17:23)
[2019-03-18] MEDS: IPRATROPIUM BROMIDE (0.02%) 0.5MG/2.5ML NEB HHN SCH ×4 (02:50→21:22)
[2019-03-18 04:00] VITALS: BP 138/73
[2019-03-18] MEDS: ISOSORB DINIT/HYDRALAZINE HCL 20/37.5MG TABLET PO SCH ×3 (05:28→21:50)
[2019-03-18] MEDS: FUROSEMIDE 20MG/2ML VIAL IVP SCH (05:28)
[2019-03-18] MEDS: BLOOD SUGAR DIAGNOSTIC STRIP TEST SCH ×4 (05:35→19:57)
[2019-03-18] MEDS: INSULIN LISPRO 100 UNITS/ML SUBCUT SCH ×4 (05:35→21:55)
[2019-03-18 07:11] LABS: BASOPHILS % 2.7 % (0.0-2.0); EOSINOPHILS % 3.1 % (0.0-5.0); HEMATOCRIT. 34.3 % (42.0-52.0); HEMOGLOBIN. 11.3 g/dL (14.0-18.0); LYMPHOCYTES % 30.2 % (20.0-50.0); MEAN PLATELET VOLUME 8.1 fl (7.4-10.4); MONOCYTES % 12.9 % (2.0-8.0); NEUTROPHILS % 51.1 % (40.0-76.0); PLATELET 268 x1000/uL (130-400); RED BLOOD CELL COUNT 4.35 mill/uL (4.7-6.1); RED CELL DISTRIBUTION WIDTH 18.2 % (11.6-14.6)
[2019-03-18 07:49] LABS: CHLORIDE 103 mEq/L (98-107)
[2019-03-18] MEDS: MULTIVITAMINS,THER W-MINERALS TABLET PO SCH (09:09)
[2019-03-18] MEDS: FOLIC ACID 1MG TABLET PO SCH (09:09)
[2019-03-18] MEDS: MAGNESIUM OXIDE 400MG TABLET PO SCH (09:09)
[2019-03-18] MEDS: LOSARTAN POTASSIUM 50 MG TABLET PO SCH ×2 (09:09→21:51)
[2019-03-18] MEDS: THIAMINE HCL 100MG TABLET PO SCH (09:09)
[2019-03-18 12:00] VITALS: BP 138/59
[2019-03-18 14:00] VITALS: BP 109/56
[2019-03-18 16:00] VITALS: BP 139/79
[2019-03-18] MEDS: RIVAROXABAN 20 MG TABLET PO SCH (17:23)
[2019-03-18] MEDS: FUROSEMIDE 40MG TABLET PO SCH (17:24)
[2019-03-18 20:00] VITALS: BP 118/67
[2019-03-18] MEDS: TAMSULOSIN HCL 0.4MG SR CAPSULE PO SCH (21:51)
[2019-03-18] MEDS: TRAMADOL 50MG TABLET PO PRN (21:51)
[2019-03-19] VITALS: BP 120/64
[2019-03-19] MEDS: DILTIAZEM HCL 90MG TABLET PO SCH ×4 (01:41→17:46)
[2019-03-19] MEDS: IPRATROPIUM BROMIDE (0.02%) 0.5MG/2.5ML NEB HHN SCH ×4 (01:51→21:02)
[2019-03-19 04:00] VITALS: BP 151/93
[2019-03-19] MEDS: TRAMADOL 50MG TABLET PO PRN ×2 (04:10→21:20)
[2019-03-19] MEDS: FUROSEMIDE 40MG TABLET PO SCH ×2 (05:54→17:46)
[2019-03-19] MEDS: ISOSORB DINIT/HYDRALAZINE HCL 20/37.5MG TABLET PO SCH ×3 (05:54→21:20)
[2019-03-19] MEDS: BLOOD SUGAR DIAGNOSTIC STRIP TEST SCH ×4 (05:56→21:10)
[2019-03-19] MEDS: INSULIN LISPRO 100 UNITS/ML SUBCUT SCH ×4 (06:03→21:00)
[2019-03-19 07:06] LABS: CHLORIDE 103 mEq/L (98-107)
[2019-03-19 07:11] LABS: BASOPHILS % 1.6 % (0.0-2.0); EOSINOPHILS % 3.2 % (0.0-5.0); HEMATOCRIT. 37.1 % (42.0-52.0); HEMOGLOBIN. 12.1 g/dL (14.0-18.0); LYMPHOCYTES % 31.8 % (20.0-50.0); MEAN CORPUSCULAR HEMOGLOBIN 25.8 pg (28.0-32.0); MEAN CORPUSCULAR VOLUME 79.4 fL (80.0-94.0); MEAN PLATELET VOLUME 8.4 fl (7.4-10.4); MONOCYTES % 13.9 % (2.0-8.0); NEUTROPHILS % 49.5 % (40.0-76.0); PLATELET 280 x1000/uL (130-400); RED BLOOD CELL COUNT 4.68 mill/uL (4.7-6.1); RED CELL DISTRIBUTION WIDTH 18.4 % (11.6-14.6)
[2019-03-19 08:00] VITALS: BP 140/81
[2019-03-19] MEDS: LEVETIRACETAM 500MG TABLET PO SCH ×2 (08:59→17:46)
[2019-03-19] MEDS: MULTIVITAMINS,THER W-MINERALS TABLET PO SCH (08:59)
[2019-03-19] MEDS: LOSARTAN POTASSIUM 50 MG TABLET PO SCH ×2 (09:00→21:20)
[2019-03-19] MEDS: THIAMINE HCL 100MG TABLET PO SCH (09:00)
[2019-03-19] MEDS: MAGNESIUM OXIDE 400MG TABLET PO SCH (09:00)
[2019-03-19] MEDS: FOLIC ACID 1MG TABLET PO SCH (09:00)
[2019-03-19 12:00] VITALS: BP 138/90
[2019-03-19 16:00] VITALS: BP 128/76
[2019-03-19] MEDS: RIVAROXABAN 20 MG TABLET PO SCH (17:46)
[2019-03-19 20:00] VITALS: BP 141/76
[2019-03-19] MEDS: TAMSULOSIN HCL 0.4MG SR CAPSULE PO SCH (21:19)
[2019-03-20] VITALS (7 sets, daily range): BP systolic 122–170; BP diastolic 60–96
[2019-03-20] MEDS: DILTIAZEM HCL 90MG TABLET PO SCH ×4 (00:27→17:28)
[2019-03-20] MEDS: IPRATROPIUM BROMIDE (0.02%) 0.5MG/2.5ML NEB HHN SCH ×4 (01:08→20:03)
[2019-03-20] MEDS: INSULIN LISPRO 100 UNITS/ML SUBCUT SCH ×4 (06:18→21:09)
[2019-03-20] MEDS: BLOOD SUGAR DIAGNOSTIC STRIP TEST SCH ×4 (06:18→20:58)
[2019-03-20] MEDS: ISOSORB DINIT/HYDRALAZINE HCL 20/37.5MG TABLET PO SCH ×3 (06:23→21:08)
[2019-03-20] MEDS: FUROSEMIDE 40MG TABLET PO SCH ×2 (06:24→17:20)
[2019-03-20] MEDS: THIAMINE HCL 100MG TABLET PO SCH (09:07)
[2019-03-20] MEDS: MAGNESIUM OXIDE 400MG TABLET PO SCH (09:07)
[2019-03-20] MEDS: LOSARTAN POTASSIUM 50 MG TABLET PO SCH ×2 (09:07→21:07)
[2019-03-20] MEDS: FOLIC ACID 1MG TABLET PO SCH (09:07)
[2019-03-20] MEDS: MULTIVITAMINS,THER W-MINERALS TABLET PO SCH (09:07)
[2019-03-20] MEDS: LEVETIRACETAM 500MG TABLET PO SCH ×2 (09:07→17:20)
[2019-03-20] MEDS ORDERED: ACETAMINOPHEN 325MG TABLET PO PRN (13:00)
[2019-03-20] MEDS: HYDRALAZINE 20MG/ML VIAL IV PRN (13:02)
[2019-03-20] MEDS: RIVAROXABAN 20 MG TABLET PO SCH (17:25)
[2019-03-20] MEDS ORDERED: DILT30TA38 PO (18:36)
[2019-03-20] MEDS ORDERED: AMLO10TA4 PO (18:39)
[2019-03-20] MEDS ORDERED: LISI-604 PO (18:41)
[2019-03-20] MEDS ORDERED: INSU100I28 SQ (18:46)
[2019-03-20] MEDS ORDERED: DOXA2TAB2 PO (18:56)
[2019-03-20] MEDS ORDERED: CLON0.3T4 PO (19:00)
[2019-03-20] MEDS ORDERED: ATOR10TA69 PO (19:01)
[2019-03-20] MEDS ORDERED: FURO40TA5 PO (19:02)
[2019-03-20] MEDS ORDERED: GLIP5TAB12 PO (19:04)
[2019-03-20] MEDS: TAMSULOSIN HCL 0.4MG SR CAPSULE PO SCH (21:07)
[2019-03-21] VITALS: BP 125/70
[2019-03-21] MEDS: DILTIAZEM HCL 90MG TABLET PO SCH ×3 (00:54→12:00)
[2019-03-21] MEDS: IPRATROPIUM BROMIDE (0.02%) 0.5MG/2.5ML NEB HHN SCH (01:18)
[2019-03-21 04:00] VITALS: BP 140/78
[2019-03-21] MEDS: INSULIN LISPRO 100 UNITS/ML SUBCUT SCH ×2 (06:12→12:00)
[2019-03-21] MEDS: BLOOD SUGAR DIAGNOSTIC STRIP TEST SCH ×2 (06:12→12:00)
[2019-03-21] MEDS: ISOSORB DINIT/HYDRALAZINE HCL 20/37.5MG TABLET PO SCH (06:16)
[2019-03-21] MEDS: FUROSEMIDE 40MG TABLET PO SCH (06:16)
[2019-03-21 08:00] VITALS: BP 142/65
[2019-03-21] MEDS: FOLIC ACID 1MG TABLET PO SCH (08:31)
[2019-03-21] MEDS: LEVETIRACETAM 500MG TABLET PO SCH (08:31)
[2019-03-21] MEDS: LOSARTAN POTASSIUM 50 MG TABLET PO SCH (08:31)
[2019-03-21] MEDS: MAGNESIUM OXIDE 400MG TABLET PO SCH (08:31)
[2019-03-21] MEDS: THIAMINE HCL 100MG TABLET PO SCH (08:31)
[2019-03-21] MEDS: MULTIVITAMINS,THER W-MINERALS TABLET PO SCH (08:32)
[2019-03-21 11:33] VITALS: BP 131/65
[2019-03-21 12:07] VITALS: BP 131/65
[2019-03-22 17:14] LABS: BARBITURATE SCREEN Negative ug/mL (Cutoff:0.1); BENZODIAZEPINE SCREEN Negative ng/mL (Cutoff:20); OPIATES SCREEN Negative ng/mL (Cutoff:5); PHENCYCLIDINE SCREEN Negative ng/mL (Cutoff:8)
== END 2019-03-21 14:40 | disposition home or self-care (01) | DRG 812 ==
LOC: ER 22:14 → EDBEDREQSVC 22:57 → EDBEDREQ 22:57 → EDBEDREQTM 22:57 → EDBEDREQ 03-12 02:10 → ENRESERV 03-12 02:50 → CVICU 03-12 03:53 → 8WST 03-14 10:55
PROVIDERS: ADMIT Hospitalist; ATTEND Hospitalist
PROC: 4A00X4Z Measurement of Central Nervous Electrical Activity, External Approach (ICD-10-PCS; principal; 2019-03-13)
DX: T43.621A Poisoning by amphetamines, accidental (unintentional), initial encounter (principal); J96.00 Acute respiratory failure, unspecified whether with hypoxia or hypercapnia; I47.2 Ventricular tachycardia; G93.40 Encephalopathy, unspecified; N17.9 Acute kidney failure, unspecified; E44.0 Moderate protein-calorie malnutrition; D68.9 Coagulation defect, unspecified; I47.1 Supraventricular tachycardia; E11.22 Type 2 diabetes mellitus with diabetic chronic kidney disease; I48.0 Paroxysmal atrial fibrillation; Y92.89 Other specified places as the place of occurrence of the external cause; G40.409 Other generalized epilepsy and epileptic syndromes, not intractable, without status epilepticus; E11.52 Type 2 diabetes mellitus with diabetic peripheral angiopathy with gangrene; I42.9 Cardiomyopathy, unspecified; I50.20 Unspecified systolic (congestive) heart failure; N18.9 Chronic kidney disease, unspecified; E11.65 Type 2 diabetes mellitus with hyperglycemia; E87.2 Acidosis; Z59.0 Homelessness; E78.5 Hyperlipidemia, unspecified; F10.10 Alcohol abuse, uncomplicated; F17.210 Nicotine dependence, cigarettes, uncomplicated; I25.10 Atherosclerotic heart disease of native coronary artery without angina pectoris; I42.0 Dilated cardiomyopathy; R74.0 Nonspecific elevation of levels of transaminase and lactic acid dehydrogenase [LDH]; F19.10 Other psychoactive substance abuse, uncomplicated; I13.0 Hypertensive heart and chronic kidney disease with heart failure and stage 1 through stage 4 chronic kidney disease, or unspecified chronic kidney disease; F12.10 Cannabis abuse, uncomplicated; F14.10 Cocaine abuse, uncomplicated; Z86.73 Personal history of transient ischemic attack (TIA), and cerebral infarction without residual deficits; Z91.19 Patient's noncompliance with other medical treatment and regimen; Z71.6 Tobacco abuse counseling; I25.2 Old myocardial infarction; Z68.27 Body mass index [BMI] 27.0-27.9, adult
CPT/HCPCS: 36415; 70551; 71045; 80048; 80061; 80076; 80305; 80307; 80320; 82550; 82962; 83605; 83735; 83880; 84132; 84484; 93005; 93306; 93970; 94640; 96374; 96375; 97110; 97162; 99291; J0282; J0360; J1650; J1815; J1940; J1953; J2060; J2405; J3475; J3490; J7050; J7060; G0480

== ENCOUNTER 2019-04-08 08:01 | Inpatient (IN) | payer OTHER ==
[~2019-04-08] VITALS: Ht 177.8 cm; Wt 94.9 kg
[~2019-04-08 08:01] MED LIST: AMLO10TA4 PO; ATOR10TA69 PO; CLON0.3T4 PO; DILT30TA38 PO; DOXA2TAB2 PO; FURO40TA5 PO; GLIP5TAB12 PO; INSU100I28 SQ; LISI-604 PO
[2019-04-08] MEDS ORDERED: DILTIAZEM HCL 5MG/ML 5ML VIAL IV ONE ×3 (08:15→09:30)
[2019-04-08] MEDS ORDERED: SODIUM CHLORIDE 0.9% 1,000 ML IV ONE (08:33)
[2019-04-08] MEDS ORDERED: LORAZEPAM 2MG/ML CPJ IV ONE (08:45)
[2019-04-08] MEDS ORDERED: ASPIRIN 81MG TABLET PO ONE (08:45)
[2019-04-08 08:46] LABS: BASOPHILS % 1.2 % (0.0-2.0); EOSINOPHILS % 0.8 % (0.0-5.0); HEMATOCRIT. 45.2 % (42.0-52.0); HEMOGLOBIN. 14.1 g/dL (14.0-18.0); LYMPHOCYTES % 14.4 % (20.0-50.0); MEAN CORPUSCULAR HEMOGLOBIN 25.3 pg (28.0-32.0); MONOCYTES % 6.9 % (2.0-8.0); NEUTROPHILS % 76.7 % (40.0-76.0); PLATELET 276 x1000/uL (130-400); RED BLOOD CELL COUNT 5.58 mill/uL (4.7-6.1)
[2019-04-08 08:48] LABS: CHLORIDE 109 mEq/L (98-107)
[2019-04-08 08:52] LABS: ETHANOL BLOOD < 10 mg/dL; INR 1.2; PARTIAL THROMBOPLASTIN TIME 32.1 sec (23.4-31.0); PROTHROMBIN TIME 12.4 sec (9.6-11.0)
[2019-04-08] MEDS ORDERED: CALCIUM CHLORIDE 1GM/10ML SYR IV ONE (09:30)
[2019-04-08] MEDS ORDERED: DILTIAZEM HCL 30MG TABLET PO ONE (09:30)
[2019-04-08] MEDS ORDERED: DILTIAZEM HCL 125 MG in DEXT 5% WATER 100 ML IV ONE (10:00)
[2019-04-08] MEDS ORDERED: DILTIAZEM HCL 125 MG in DEXT 5% WATER 100 ML IV NR (10:00)
[2019-04-08] MEDS ORDERED: PIPERACILLIN/TAZ 3.375G PREMIX 50 ML IV ONE (10:15)
[2019-04-08 14:22] LABS: CLARITY URINE CLEAR (CLEAR); COLOR URINE YELLOW (YELLOW); KETONES URINE NEGATIVE (NEGATIVE); LEUKOCYTE ESTERASE URINE NEGATIVE (NEGATIVE); NITRITE URINE NEGATIVE (NEGATIVE); OCCULT BLOOD URINE 2+ (NEGATIVE); PROTEIN URINE 2+ (NEGATIVE); SPECIFIC GRAVITY URINE 1.013 (1.005-1.030)
[2019-04-08 14:31] LABS: *AMPHETAMINES SCREEN URINE PRESUMTIVE POSITIVE (NEGATIVE); *BARBITURATES SCREEN URINE NEGATIVE (NEGATIVE); *BENZODIAZEPINES SCREEN URINE NEGATIVE (NEGATIVE); *COCAINE SCREEN URINE PRESUMTIVE POSITIVE (NEGATIVE); CANNABINOID URINE SCREEN PRESUMTIVE POSITIVE (NEGATIVE); METHADONE URINE SCREEN NEGATIVE (NEGATIVE)
[2019-04-08 14:32] LABS: OPIATES URINE SCREEN NEGATIVE (NEGATIVE); PHENCYCLIDINE URINE SCREEN PRESUMTIVE POSITIVE (NEGATIVE)
[2019-04-08 16:47] VITALS: BP 150/125
[2019-04-08 17:00] VITALS: BP 163/97
[2019-04-08 18:00] VITALS: BP 142/90
[2019-04-08] MEDS ORDERED: DEXTROSE 50% WATER 50ML SYRINGE IV PRN (19:00)
[2019-04-08] MEDS ORDERED: CLONIDINE 0.1MG TABLET PO PRN (19:00)
[2019-04-08 20:00] VITALS: BP 157/109
[2019-04-08 20:30] LABS: CREATINE KINASE 150 IU/L (39-308)
[2019-04-08] MEDS ORDERED: VANCOMYCIN 1500MG in DEXTROSE 5% WATER 250ML IV NR (20:30)
[2019-04-08] MEDS: DILTIAZEM HCL 125 MG in DEXTROSE 5% WATER 125 ML IV SCH (20:54)
[2019-04-08] MEDS: LOSARTAN POTASSIUM 25 MG TABLET PO SCH (20:54)
[2019-04-08] MEDS: FUROSEMIDE 40MG/4ML VIAL IV SCH (20:55)
[2019-04-08] MEDS: ASPIRIN 81MG TABLET PO SCH (20:55)
[2019-04-08] MEDS: AMLODIPINE 5MG TABLET PO SCH (20:55)
[2019-04-08] MEDS: PIPERACILLIN/TAZOBACTAM 3.375 G in DEXT 5% WATER 100 ML IV SCH (20:56)
[2019-04-08] MEDS ORDERED: AMLODIPINE 5MG TABLET PO SCH (21:00)
[2019-04-08] MEDS: BLOOD SUGAR DIAGNOSTIC STRIP TEST SCH (21:00)
[2019-04-08] MEDS: LEVETIRACETAM 500MG TABLET PO SCH (21:05)
[2019-04-08] MEDS: ENOXAPARIN 30MG/0.3ML SYR SUBCUT SCH (21:07)
[2019-04-08] MEDS: INSULIN LISPRO (HIGH DOSE) 100 UNITS/ML SUBCUT SCH (21:35)
[2019-04-08] MEDS: INSULIN GLARGINE UD 100 UNITS/ML SYR SUBCUT SCH (21:36)
[2019-04-08 22:02] VITALS: BP 151/86
[2019-04-09] VITALS (12 sets, daily range): BP systolic 121–149; BP diastolic 38–105
[2019-04-09] MEDS: PIPERACILLIN/TAZOBACTAM 3.375 G in DEXT 5% WATER 100 ML IV SCH ×4 (02:44→20:40)
[2019-04-09] MEDS: DILTIAZEM HCL 125 MG in DEXTROSE 5% WATER 125 ML IV SCH ×2 (04:24→12:57)
[2019-04-09] MEDS: BLOOD SUGAR DIAGNOSTIC STRIP TEST SCH ×4 (06:50→21:23)
[2019-04-09 07:18] LABS: BASOPHILS % 0.9 % (0.0-2.0); HEMATOCRIT. 37.9 % (42.0-52.0); HEMOGLOBIN. 12.4 g/dL (14.0-18.0); LYMPHOCYTES % 21.2 % (20.0-50.0); MEAN CORPUSCULAR HEMOGLOBIN 25.7 pg (28.0-32.0); MEAN CORPUSCULAR VOLUME 78.8 fL (80.0-94.0); MEAN PLATELET VOLUME 9.1 fl (7.4-10.4); NEUTROPHILS % 68.9 % (40.0-76.0); PLATELET 265 x1000/uL (130-400); RED BLOOD CELL COUNT 4.81 mill/uL (4.7-6.1); RED CELL DISTRIBUTION WIDTH 19.8 % (11.6-14.6)
[2019-04-09 07:44] LABS: CHLORIDE 111 mEq/L (98-107)
[2019-04-09 07:51] LABS: LDL CHOLESTEROL 58 mg/dL (5-100)
[2019-04-09 07:52] LABS: HDL CHOLESTEROL 33 mg/dL (40-59)
[2019-04-09] MEDS: FUROSEMIDE 40MG/4ML VIAL IV SCH (08:42)
[2019-04-09] MEDS: INSULIN LISPRO (HIGH DOSE) 100 UNITS/ML SUBCUT SCH ×4 (08:42→21:26)
[2019-04-09] MEDS: LOSARTAN POTASSIUM 25 MG TABLET PO SCH (08:52)
[2019-04-09] MEDS: LEVETIRACETAM 500MG TABLET PO SCH ×2 (08:52→21:22)
[2019-04-09] MEDS: AMLODIPINE 5MG TABLET PO SCH ×2 (08:53→21:23)
[2019-04-09] MEDS: ASPIRIN 81MG TABLET PO SCH (08:53)
[2019-04-09] MEDS: ENOXAPARIN 30MG/0.3ML SYR SUBCUT SCH ×2 (08:54→21:22)
[2019-04-09] MEDS: INSULIN GLARGINE UD 100 UNITS/ML SYR SUBCUT SCH ×2 (10:15→21:26)
[2019-04-09] MEDS ORDERED: VANCOMYCIN 1250MG in DEXTROSE 5% WATER 250ML IV SCH (11:00)
[2019-04-09] MEDS ORDERED: HYDROCODONE/ACETAMINOPHEN 5/325MG TABLET PO PRN (11:45)
[2019-04-09] MEDS ORDERED: DILTIAZEM HCL 60MG TABLET PO NR (15:12)
[2019-04-09] MEDS ORDERED: POTASSIUM CHLORIDE 20MEQ TABLET SR PO NR (15:26)
[2019-04-09] MEDS: DILTIAZEM HCL 125 MG in DEXT 5% WATER 100 ML IV SCH (15:51)
[2019-04-09] MEDS: DILTIAZEM HCL 60MG TABLET PO SCH (21:24)
[2019-04-09] MEDS ORDERED: VANCOMYCIN 1 G PREMIX 200 ML IV SCH (23:00)
[2019-04-10] VITALS (17 sets, daily range): BP systolic 121–162; BP diastolic 65–107
[2019-04-10] MEDS: PIPERACILLIN/TAZOBACTAM 3.375 G in DEXT 5% WATER 100 ML IV SCH ×4 (02:14→20:03)
[2019-04-10] MEDS: DILTIAZEM HCL 60MG TABLET PO SCH ×3 (06:22→17:40)
[2019-04-10 07:08] LABS: PHOSPHORUS 2.8 mg/dL (2.5-4.9)
[2019-04-10 07:10] LABS: BASOPHILS % 0.8 % (0.0-2.0); EOSINOPHILS % 1.4 % (0.0-5.0); HEMATOCRIT. 39.8 % (42.0-52.0); HEMOGLOBIN. 12.7 g/dL (14.0-18.0); LYMPHOCYTES % 19.3 % (20.0-50.0); MEAN CORPUSCULAR HEMOGLOBIN 25.2 pg (28.0-32.0); MEAN CORPUSCULAR VOLUME 79.1 fL (80.0-94.0); MONOCYTES % 8.6 % (2.0-8.0); NEUTROPHILS % 69.9 % (40.0-76.0); PLATELET 280 x1000/uL (130-400); RED BLOOD CELL COUNT 5.04 mill/uL (4.7-6.1); RED CELL DISTRIBUTION WIDTH 19.8 % (11.6-14.6)
[2019-04-10] MEDS: INSULIN LISPRO (HIGH DOSE) 100 UNITS/ML SUBCUT SCH ×4 (07:11→21:00)
[2019-04-10] MEDS: BLOOD SUGAR DIAGNOSTIC STRIP TEST SCH ×4 (07:11→21:24)
[2019-04-10] MEDS: DILTIAZEM HCL 125 MG in DEXT 5% WATER 100 ML IV SCH (09:06)
[2019-04-10] MEDS: AMLODIPINE 5MG TABLET PO SCH (10:01)
[2019-04-10] MEDS: LEVETIRACETAM 500MG TABLET PO SCH ×2 (10:01→21:24)
[2019-04-10] MEDS: FUROSEMIDE 40MG/4ML VIAL IV SCH (10:01)
[2019-04-10] MEDS: LOSARTAN POTASSIUM 25 MG TABLET PO SCH (10:02)
[2019-04-10] MEDS: ENOXAPARIN 30MG/0.3ML SYR SUBCUT SCH ×2 (10:02→21:23)
[2019-04-10] MEDS: ASPIRIN 81MG TABLET PO SCH (10:02)
[2019-04-10] MEDS: INSULIN GLARGINE UD 100 UNITS/ML SYR SUBCUT SCH ×2 (10:05→21:26)
[2019-04-10] MEDS ORDERED: CLONIDINE 0.1MG TABLET PO NR (13:00)
[2019-04-10] MEDS: LINEZOLID 600 MG PREMIX 300 ML IV SCH (13:29)
[2019-04-10] MEDS ORDERED: VANCOMYCIN 1500MG in DEXTROSE 5% WATER 250ML IV SCH (18:00)
[2019-04-10] MEDS: CLONIDINE 0.1MG TABLET PO SCH (21:24)
[2019-04-11] VITALS (12 sets, daily range): BP systolic 122–158; BP diastolic 74–105
[2019-04-11] MEDS: DILTIAZEM HCL 60MG TABLET PO SCH ×5 (00:09→23:59)
[2019-04-11] MEDS: LINEZOLID 600 MG PREMIX 300 ML IV SCH ×3 (00:09→23:59)
[2019-04-11] MEDS: PIPERACILLIN/TAZOBACTAM 3.375 G in DEXT 5% WATER 100 ML IV SCH ×4 (02:05→20:39)
[2019-04-11] MEDS: CLONIDINE 0.1MG TABLET PO SCH ×3 (06:14→21:21)
[2019-04-11] MEDS: BLOOD SUGAR DIAGNOSTIC STRIP TEST SCH ×4 (06:34→20:39)
[2019-04-11 06:58] LABS: CHLORIDE 108 mEq/L (98-107)
[2019-04-11 07:00] LABS: BASOPHILS % 0.8 % (0.0-2.0); EOSINOPHILS % 2.4 % (0.0-5.0); HEMATOCRIT. 39.9 % (42.0-52.0); HEMOGLOBIN. 12.7 g/dL (14.0-18.0); LYMPHOCYTES % 24.2 % (20.0-50.0); MEAN CORPUSCULAR HEMOGLOBIN 25.3 pg (28.0-32.0); MEAN CORPUSCULAR VOLUME 79.5 fL (80.0-94.0); MEAN PLATELET VOLUME 8.6 fl (7.4-10.4); MONOCYTES % 10.8 % (2.0-8.0); NEUTROPHILS % 61.8 % (40.0-76.0); PLATELET 265 x1000/uL (130-400); RED BLOOD CELL COUNT 5.02 mill/uL (4.7-6.1); RED CELL DISTRIBUTION WIDTH 19.8 % (11.6-14.6)
[2019-04-11] MEDS: INSULIN LISPRO (HIGH DOSE) 100 UNITS/ML SUBCUT SCH ×4 (07:20→20:49)
[2019-04-11] MEDS: ENOXAPARIN 30MG/0.3ML SYR SUBCUT SCH ×2 (08:34→20:39)
[2019-04-11] MEDS: LEVETIRACETAM 500MG TABLET PO SCH ×2 (08:34→20:39)
[2019-04-11] MEDS: FUROSEMIDE 40MG/4ML VIAL IV SCH (08:34)
[2019-04-11] MEDS: ASPIRIN 81MG TABLET PO SCH (08:35)
[2019-04-11] MEDS: LOSARTAN POTASSIUM 25 MG TABLET PO SCH (08:35)
[2019-04-11] MEDS: INSULIN GLARGINE UD 100 UNITS/ML SYR SUBCUT SCH ×2 (10:08→21:22)
[2019-04-12] VITALS: BP 161/110
[2019-04-12] MEDS: PIPERACILLIN/TAZOBACTAM 3.375 G in DEXT 5% WATER 100 ML IV SCH ×2 (02:24→09:06)
[2019-04-12 04:00] VITALS: BP 155/84
[2019-04-12 05:15] LABS: HIV SCREEN 4G Non Reactive (Non Reactive)
[2019-04-12] MEDS: DILTIAZEM HCL 60MG TABLET PO SCH ×3 (05:55→17:05)
[2019-04-12] MEDS: CLONIDINE 0.1MG TABLET PO SCH ×3 (05:55→21:14)
[2019-04-12] MEDS: BLOOD SUGAR DIAGNOSTIC STRIP TEST SCH ×4 (06:33→21:27)
[2019-04-12 06:46] LABS: HEMATOCRIT. 40.9 % (42.0-52.0); HEMOGLOBIN. 13.2 g/dL (14.0-18.0); MEAN CORPUSCULAR HEMOGLOBIN 25.4 pg (28.0-32.0); MEAN CORPUSCULAR VOLUME 78.8 fL (80.0-94.0); PLATELET 232 x1000/uL (130-400); RED BLOOD CELL COUNT 5.19 mill/uL (4.7-6.1); RED CELL DISTRIBUTION WIDTH 19.8 % (11.6-14.6)
[2019-04-12 07:11] LABS: CHLORIDE 106 mEq/L (98-107)
[2019-04-12 07:56] VITALS: BP 136/90
[2019-04-12] MEDS: INSULIN LISPRO (HIGH DOSE) 100 UNITS/ML SUBCUT SCH ×4 (09:07→21:00)
[2019-04-12] MEDS: ENOXAPARIN 30MG/0.3ML SYR SUBCUT SCH ×2 (09:08→21:27)
[2019-04-12] MEDS: LOSARTAN POTASSIUM 25 MG TABLET PO SCH (09:08)
[2019-04-12] MEDS: LEVETIRACETAM 500MG TABLET PO SCH ×2 (09:08→21:15)
[2019-04-12] MEDS: ASPIRIN 81MG TABLET PO SCH (09:08)
[2019-04-12] MEDS: FUROSEMIDE 40MG/4ML VIAL IV SCH (09:08)
[2019-04-12 10:14] LABS: PLATELET ESTIMATE NORMAL
[2019-04-12] MEDS: INSULIN GLARGINE UD 100 UNITS/ML SYR SUBCUT SCH ×2 (10:55→21:27)
[2019-04-12 11:40] VITALS: BP 144/94
[2019-04-12] MEDS: LINEZOLID 600 MG PREMIX 300 ML IV SCH (12:19)
[2019-04-12] MEDS ORDERED: ASPIRIN 325MG EC TABLET PO SCH (13:30)
[2019-04-12] MEDS: AMPICILLIN 2,000 MG in SODIUM CHLORIDE 0.9% 100 ML IV SCH ×2 (14:22→21:14)
[2019-04-12 15:59] VITALS: BP 143/98
[2019-04-12 20:00] VITALS: BP 129/83
[2019-04-13] VITALS: BP 137/92
[2019-04-13] MEDS: DILTIAZEM HCL 60MG TABLET PO SCH ×4 (00:36→19:02)
[2019-04-13] MEDS: AMPICILLIN 2,000 MG in SODIUM CHLORIDE 0.9% 100 ML IV SCH ×3 (02:04→19:02)
[2019-04-13 04:00] VITALS: BP 138/93
[2019-04-13] MEDS: CLONIDINE 0.1MG TABLET PO SCH ×3 (05:06→21:07)
[2019-04-13] MEDS: BLOOD SUGAR DIAGNOSTIC STRIP TEST SCH ×4 (06:10→21:07)
[2019-04-13 07:50] VITALS: BP 159/102
[2019-04-13] MEDS: INSULIN LISPRO (HIGH DOSE) 100 UNITS/ML SUBCUT SCH ×4 (08:10→21:08)
[2019-04-13] MEDS: ASPIRIN 81MG TABLET PO SCH (10:29)
[2019-04-13] MEDS: LOSARTAN POTASSIUM 25 MG TABLET PO SCH (10:29)
[2019-04-13] MEDS: LEVETIRACETAM 500MG TABLET PO SCH ×2 (10:29→21:07)
[2019-04-13] MEDS: FUROSEMIDE 40MG TABLET PO SCH (10:30)
[2019-04-13] MEDS: ENOXAPARIN 30MG/0.3ML SYR SUBCUT SCH ×2 (10:32→21:07)
[2019-04-13] MEDS: INSULIN GLARGINE UD 100 UNITS/ML SYR SUBCUT SCH ×2 (10:51→21:08)
[2019-04-13 12:00] VITALS: BP 148/112
[2019-04-13 17:40] VITALS: BP 144/88
[2019-04-13 20:00] VITALS: BP 153/93
[2019-04-14] VITALS: BP 140/83
[2019-04-14] MEDS: DILTIAZEM HCL 60MG TABLET PO SCH ×4 (00:03→18:08)
[2019-04-14] MEDS: AMPICILLIN 2,000 MG in SODIUM CHLORIDE 0.9% 100 ML IV SCH ×4 (00:03→18:08)
[2019-04-14 06:00] VITALS: BP 147/93
[2019-04-14] MEDS: CLONIDINE 0.1MG TABLET PO SCH ×3 (06:02→21:11)
[2019-04-14 08:00] VITALS: BP 141/90
[2019-04-14] MEDS: BLOOD SUGAR DIAGNOSTIC STRIP TEST SCH ×4 (08:20→21:11)
[2019-04-14] MEDS: INSULIN LISPRO (HIGH DOSE) 100 UNITS/ML SUBCUT SCH ×4 (08:25→21:11)
[2019-04-14] MEDS: LEVETIRACETAM 500MG TABLET PO SCH ×2 (09:12→21:10)
[2019-04-14] MEDS: ASPIRIN 81MG TABLET PO SCH (09:12)
[2019-04-14] MEDS: LOSARTAN POTASSIUM 25 MG TABLET PO SCH (09:12)
[2019-04-14] MEDS: ENOXAPARIN 30MG/0.3ML SYR SUBCUT SCH ×2 (09:12→21:12)
[2019-04-14] MEDS: FUROSEMIDE 40MG TABLET PO SCH (09:12)
[2019-04-14] MEDS: INSULIN GLARGINE UD 100 UNITS/ML SYR SUBCUT SCH ×2 (10:25→21:11)
[2019-04-14 12:00] VITALS: BP 149/98
[2019-04-14 16:00] VITALS: BP 140/94
[2019-04-15] MEDS: DILTIAZEM HCL 60MG TABLET PO SCH ×4 (00:02→17:50)
[2019-04-15 00:16] VITALS: BP 139/78
[2019-04-15 04:00] VITALS: BP 150/90
[2019-04-15 05:59] LABS: BASOPHILS % 1.6 % (0.0-2.0); EOSINOPHILS % 2.6 % (0.0-5.0); HEMATOCRIT. 36.9 % (42.0-52.0); LYMPHOCYTES % 28.4 % (20.0-50.0); MEAN CORPUSCULAR HEMOGLOBIN 25.6 pg (28.0-32.0); MEAN CORPUSCULAR VOLUME 78.7 fL (80.0-94.0); MEAN PLATELET VOLUME 8.4 fl (7.4-10.4); MONOCYTES % 11.5 % (2.0-8.0); NEUTROPHILS % 55.9 % (40.0-76.0); PLATELET 194 x1000/uL (130-400); RED BLOOD CELL COUNT 4.69 mill/uL (4.7-6.1); RED CELL DISTRIBUTION WIDTH 19.2 % (11.6-14.6)
[2019-04-15] MEDS: AMPICILLIN 2,000 MG in SODIUM CHLORIDE 0.9% 100 ML IV SCH ×5 (06:14→18:50)
[2019-04-15] MEDS: CLONIDINE 0.1MG TABLET PO SCH ×3 (06:15→21:07)
[2019-04-15] MEDS: BLOOD SUGAR DIAGNOSTIC STRIP TEST SCH ×4 (07:40→20:54)
[2019-04-15 08:00] VITALS: BP 131/88
[2019-04-15] MEDS: INSULIN LISPRO (HIGH DOSE) 100 UNITS/ML SUBCUT SCH ×4 (08:10→21:09)
[2019-04-15] MEDS: LEVETIRACETAM 500MG TABLET PO SCH ×2 (09:34→21:06)
[2019-04-15] MEDS: FUROSEMIDE 40MG TABLET PO SCH (09:34)
[2019-04-15] MEDS: LOSARTAN POTASSIUM 25 MG TABLET PO SCH (09:34)
[2019-04-15] MEDS: ENOXAPARIN 30MG/0.3ML SYR SUBCUT SCH ×2 (09:35→21:06)
[2019-04-15] MEDS: ASPIRIN 81MG TABLET PO SCH (09:35)
[2019-04-15] MEDS: INSULIN GLARGINE UD 100 UNITS/ML SYR SUBCUT SCH ×2 (09:36→21:10)
[2019-04-15 12:00] VITALS: BP 164/94
[2019-04-15 16:00] VITALS: BP 133/94
[2019-04-16] VITALS: BP 155/83
[2019-04-16] MEDS: AMPICILLIN 2,000 MG in SODIUM CHLORIDE 0.9% 100 ML IV SCH ×4 (01:22→19:10)
[2019-04-16] MEDS: DILTIAZEM HCL 60MG TABLET PO SCH ×4 (01:22→17:37)
[2019-04-16 04:00] VITALS: BP 150/101
[2019-04-16] MEDS: BLOOD SUGAR DIAGNOSTIC STRIP TEST SCH ×4 (06:26→20:36)
[2019-04-16] MEDS: CLONIDINE 0.1MG TABLET PO SCH ×3 (06:26→22:23)
[2019-04-16] MEDS: INSULIN LISPRO (HIGH DOSE) 100 UNITS/ML SUBCUT SCH ×4 (06:30→20:53)
[2019-04-16 08:00] VITALS: BP 138/78
[2019-04-16] MEDS: ASPIRIN 81MG TABLET PO SCH (08:46)
[2019-04-16] MEDS: LEVETIRACETAM 500MG TABLET PO SCH ×2 (08:46→21:16)
[2019-04-16] MEDS: FUROSEMIDE 40MG TABLET PO SCH (08:46)
[2019-04-16] MEDS: LOSARTAN POTASSIUM 25 MG TABLET PO SCH (08:46)
[2019-04-16] MEDS: ENOXAPARIN 30MG/0.3ML SYR SUBCUT SCH ×2 (08:46→21:17)
[2019-04-16] MEDS: INSULIN GLARGINE UD 100 UNITS/ML SYR SUBCUT SCH ×2 (10:20→22:20)
[2019-04-16 12:00] VITALS: BP 149/98
[2019-04-16 20:00] VITALS: BP 124/91
[2019-04-17] VITALS: BP 158/92
[2019-04-17] MEDS: DILTIAZEM HCL 60MG TABLET PO SCH ×3 (00:22→13:44)
[2019-04-17] MEDS: AMPICILLIN 2,000 MG in SODIUM CHLORIDE 0.9% 100 ML IV SCH ×3 (00:22→13:41)
[2019-04-17 04:00] VITALS: BP 154/89
[2019-04-17] MEDS: CLONIDINE 0.1MG TABLET PO SCH ×2 (06:01→14:01)
[2019-04-17] MEDS: BLOOD SUGAR DIAGNOSTIC STRIP TEST SCH ×2 (06:17→13:30)
[2019-04-17 08:00] VITALS: BP 142/92
[2019-04-17] MEDS: INSULIN LISPRO (HIGH DOSE) 100 UNITS/ML SUBCUT SCH ×2 (08:10→13:10)
[2019-04-17] MEDS: FUROSEMIDE 40MG TABLET PO SCH (09:13)
[2019-04-17] MEDS: ASPIRIN 81MG TABLET PO SCH (09:13)
[2019-04-17] MEDS: LEVETIRACETAM 500MG TABLET PO SCH (09:13)
[2019-04-17] MEDS: LOSARTAN POTASSIUM 25 MG TABLET PO SCH (09:13)
[2019-04-17] MEDS: ENOXAPARIN 30MG/0.3ML SYR SUBCUT SCH (09:14)
[2019-04-17] MEDS: INSULIN GLARGINE UD 100 UNITS/ML SYR SUBCUT SCH (10:54)
[2019-04-17 12:00] VITALS: BP 140/88
[2019-04-17 14:50] VITALS: BP 140/69
== END 2019-04-17 16:56 | disposition home or self-care (01) | DRG 816 ==
LOC: ER 08:01 → EDBEDREQSVC 09:15 → EDBEDREQ 10:49 → EDBEDREQTM 10:50 → 3WST 11:07 → ENRESERV 15:14 → 7WST 04-12 03:21
PROVIDERS: ADMIT Internal Medicine; ATTEND Internal Medicine
DX: T40.5X1A Poisoning by cocaine, accidental (unintentional), initial encounter (principal); A41.81 Sepsis due to Enterococcus; I50.23 Acute on chronic systolic (congestive) heart failure; E11.22 Type 2 diabetes mellitus with diabetic chronic kidney disease; E11.42 Type 2 diabetes mellitus with diabetic polyneuropathy; N17.9 Acute kidney failure, unspecified; I47.1 Supraventricular tachycardia; E11.51 Type 2 diabetes mellitus with diabetic peripheral angiopathy without gangrene; N18.3 Chronic kidney disease, stage 3 (moderate); I48.91 Unspecified atrial fibrillation; G40.909 Epilepsy, unspecified, not intractable, without status epilepticus; E11.621 Type 2 diabetes mellitus with foot ulcer; E11.65 Type 2 diabetes mellitus with hyperglycemia; F15.10 Other stimulant abuse, uncomplicated; E44.1 Mild protein-calorie malnutrition; F16.10 Hallucinogen abuse, uncomplicated; F12.10 Cannabis abuse, uncomplicated; T40.7X1A Poisoning by cannabis (derivatives), accidental (unintentional), initial encounter; I49.1 Atrial premature depolarization; I42.0 Dilated cardiomyopathy; I13.0 Hypertensive heart and chronic kidney disease with heart failure and stage 1 through stage 4 chronic kidney disease, or unspecified chronic kidney disease; E87.6 Hypokalemia; E66.9 Obesity, unspecified; E78.5 Hyperlipidemia, unspecified; E87.8 Other disorders of electrolyte and fluid balance, not elsewhere classified; F17.210 Nicotine dependence, cigarettes, uncomplicated; F14.10 Cocaine abuse, uncomplicated; I34.0 Nonrheumatic mitral (valve) insufficiency; L97.519 Non-pressure chronic ulcer of other part of right foot with unspecified severity; R55 Syncope and collapse; R74.0 Nonspecific elevation of levels of transaminase and lactic acid dehydrogenase [LDH]; Y92.89 Other specified places as the place of occurrence of the external cause; Z71.6 Tobacco abuse counseling; Z86.73 Personal history of transient ischemic attack (TIA), and cerebral infarction without residual deficits; Z91.19 Patient's noncompliance with other medical treatment and regimen; Z59.0 Homelessness; Z68.30 Body mass index [BMI] 30.0-30.9, adult; Z71.51 Drug abuse counseling and surveillance of drug abuser
CPT/HCPCS: 36415; 71045; 73030; 80048; 80061; 80202; 80305; 80320; 81003; 82550; 82962; 83605; 83735; 83880; 84100; 84443; 84484; 87077; 87186; 87389; 93005; 96374; 96375; 96376; 99291; J0290; J1650; J1815; J1940; J2020; J2060; J2543; J3370; J3490; J7030; J7050; J7060; G0480

== ENCOUNTER 2019-04-21 17:07 | Inpatient (IN) | payer OTHER ==
[~2019-04-21] VITALS: Ht 177.8 cm; Wt 96.4 kg
[2019-04-21] MEDS ORDERED: ONDANSETRON HCL 4MG/2ML INJ IV STA (17:14)
[2019-04-21] MEDS ORDERED: SODIUM CHLORIDE 0.9% 1,000 ML IV ONE (17:14)
[2019-04-21] MEDS ORDERED: MORPHINE SULFATE 4 MG/ML CPJ (NOT FOR IM USE) IV STA (17:14)
[2019-04-21] MEDS ORDERED: TETANUS, DIPHTHERIA, PERTUSSIS VAC/PF 0.5ML (>7YR OLD) IM ONE (17:15)
[2019-04-21] MEDS ORDERED: LIDOCAINE 1%/EPI 1:100,000 10 ML VIAL IJ ONE (17:15)
[2019-04-21] MEDS ORDERED: DILTIAZEM HCL 5MG/ML 5ML VIAL IV ONE (17:15)
[2019-04-21] MEDS ORDERED: LORAZEPAM 2MG/ML CPJ IV ONE ×2 (17:15→18:30)
[2019-04-21] MEDS ORDERED: LIDOCAINE HCL/PF 1% 10 MG/ML 5ML VIAL IJ ONE (17:15)
[2019-04-21] MEDS ORDERED: BACITRACIN ZINC OINT UDPKT TOP ONE (17:15)
[2019-04-21 17:48] LABS: BASOPHILS % 0.8 % (0.0-2.0); EOSINOPHILS % 0.2 % (0.0-5.0); HEMATOCRIT. 42.5 % (42.0-52.0); HEMOGLOBIN. 13.8 g/dL (14.0-18.0); LYMPHOCYTES % 17.8 % (20.0-50.0); MEAN CORPUSCULAR HEMOGLOBIN 25.6 pg (28.0-32.0); MEAN CORPUSCULAR VOLUME 78.7 fL (80.0-94.0); MEAN PLATELET VOLUME 9.4 fl (7.4-10.4); MONOCYTES % 9.8 % (2.0-8.0); NEUTROPHILS % 71.4 % (40.0-76.0); PLATELET 169 x1000/uL (130-400); RED CELL DISTRIBUTION WIDTH 19.8 % (11.6-14.6)
[2019-04-21 17:53] LABS: CHLORIDE 104 mEq/L (98-107)
[2019-04-21] MEDS ORDERED: BACITRACIN 15GM TUBE TOP NR (18:00)
[2019-04-21 18:01] LABS: INR 1.3; PARTIAL THROMBOPLASTIN TIME 31.7 sec (23.4-31.0); PROTHROMBIN TIME 13.3 sec (9.6-11.0)
[2019-04-21] MEDS ORDERED: AMIODARONE HCL 50MG/ML 3ML VIAL IV ONE ×2 (18:40→18:45)
[2019-04-21] MEDS ORDERED: AMIODARONE HCL 150 MG in DEXT 5% WATER 100 ML IV ONE (18:45)
[2019-04-21] MEDS ORDERED: AMIODARONE HCL 900 MG in DEXT 5% WATER 482 ML IV PRN (18:45)
[2019-04-21] MEDS ORDERED: KETOROLAC 15MG/ML VIAL IV PRN (19:45)
[2019-04-21] MEDS ORDERED: ONDANSETRON HCL 4MG/2ML INJ IV PRN (19:45)
[2019-04-21] MEDS ORDERED: ACETAMINOPHEN 325MG TABLET PO PRN (19:45)
[2019-04-21] MEDS ORDERED: DEXTROSE 50% WATER 50ML SYRINGE IV PRN (19:45)
[2019-04-21] MEDS ORDERED: GUAIFENESIN 200MG/10ML SUGAR FREE UDC PO PRN (19:45)
[2019-04-21] MEDS ORDERED: LORAZEPAM 2MG/ML CPJ IV PRN (19:45)
[2019-04-21] MEDS ORDERED: NITROGLYCERIN 0.4MG TABLET SL SL PRN (19:45)
[2019-04-21] MEDS ORDERED: MAGNESIUM/ALUMINUM HYDROXIDE/SIMETHICONE 30ML UDC PO PRN (19:45)
[2019-04-21] MEDS ORDERED: ZOLPIDEM TARTRATE 5MG TABLET PO PRN (19:45)
[2019-04-21 21:03] LABS: VITAMIN B12 SERUM 1231 pg/mL (211-911)
[2019-04-21 21:05] LABS: FOLIC ACID (FOLATE) SERUM > 20.00 ng/mL (>5.38)
[2019-04-21] MEDS ORDERED: HYDRALAZINE 20MG/ML VIAL IV PRN ×2 (21:45)
[2019-04-21 23:30] VITALS: BP 148/107
[2019-04-21 23:53] VITALS: BP 147/102
[2019-04-21 23:55] LABS: CREATINE KINASE MB FRACTION 2.4 ng/mL (0.5-3.6)
[2019-04-22] VITALS (36 sets, daily range): BP systolic 94–217; BP diastolic 42–139
[2019-04-22] MEDS ORDERED: DILTIAZEM HCL 125 MG in DEXT 5% WATER 100 ML IV PRN ×2
[2019-04-22 02:38] LABS: BASOPHILS % 1.3 % (0.0-2.0); EOSINOPHILS % 1.2 % (0.0-5.0); HEMOGLOBIN. 12.7 g/dL (14.0-18.0); LYMPHOCYTES % 31.5 % (20.0-50.0); MEAN CORPUSCULAR VOLUME 77.6 fL (80.0-94.0); MEAN PLATELET VOLUME 9.4 fl (7.4-10.4); MONOCYTES % 12.5 % (2.0-8.0); NEUTROPHILS % 53.5 % (40.0-76.0); PLATELET 177 x1000/uL (130-400); RED BLOOD CELL COUNT 4.89 mill/uL (4.7-6.1); RED CELL DISTRIBUTION WIDTH 19.6 % (11.6-14.6)
[2019-04-22 02:44] LABS: CHLORIDE 106 mEq/L (98-107)
[2019-04-22 02:50] LABS: PHOSPHORUS 4.3 mg/dL (2.5-4.9)
[2019-04-22] MEDS ORDERED: AMIODARONE HCL 900 MG in DEXT 5% WATER 482 ML IV PRN (03:15)
[2019-04-22] MEDS ORDERED: KCL 20MEQ/100ML PREMIX 100 ML IV NR (05:00)
[2019-04-22 06:05] LABS: CREATINE KINASE MB FRACTION 1.8 ng/mL (0.5-3.6)
[2019-04-22] MEDS: DILTIAZEM HCL 60MG TABLET PO SCH ×3 (06:19→17:31)
[2019-04-22] MEDS: INSULIN LISPRO 100 UNITS/ML SUBCUT SCH ×4 (07:41→22:29)
[2019-04-22] MEDS: BLOOD SUGAR DIAGNOSTIC STRIP TEST SCH ×4 (07:41→21:00)
[2019-04-22] MEDS: ENOXAPARIN 30MG/0.3ML SYR SUBCUT SCH ×2 (08:11→22:30)
[2019-04-22] MEDS: FAMOTIDINE 20MG TABLET PO SCH ×2 (08:11→22:30)
[2019-04-22] MEDS ORDERED: ASPIRIN 325MG EC TABLET PO SCH (09:00)
[2019-04-22] MEDS ORDERED: KCL 20MEQ/100ML PREMIX 100 ML IV ONE (12:00)
[2019-04-22] MEDS ORDERED: POTASSIUM CHLORIDE 20MEQ/PACKET PO SCH (12:00)
[2019-04-22] MEDS ORDERED: POTASSIUM CHLORIDE INJ 60 MEQ in DEXT 5% WATER 500 ML IV SCH (13:00)
[2019-04-22 14:57] LABS: *AMPHETAMINES SCREEN URINE PRESUMTIVE POSITIVE (NEGATIVE); *BARBITURATES SCREEN URINE NEGATIVE (NEGATIVE); *BENZODIAZEPINES SCREEN URINE NEGATIVE (NEGATIVE); *COCAINE SCREEN URINE NEGATIVE (NEGATIVE); METHADONE URINE SCREEN NEGATIVE (NEGATIVE)
[2019-04-22 14:58] LABS: CANNABINOID URINE SCREEN PRESUMTIVE POSITIVE (NEGATIVE); OPIATES URINE SCREEN PRESUMTIVE POSITIVE (NEGATIVE); PHENCYCLIDINE URINE SCREEN PRESUMTIVE POSITIVE (NEGATIVE)
[2019-04-22 23:22] LABS: CHLORIDE 110 mEq/L (98-107)
[2019-04-23] VITALS (8 sets, daily range): BP systolic 135–175; BP diastolic 76–112
[2019-04-23] MEDS: DILTIAZEM HCL 60MG TABLET PO SCH ×3 (00:17→12:07)
[2019-04-23] MEDS: CLONIDINE 0.1MG TABLET PO PRN ×2 (04:55→11:04)
[2019-04-23 06:38] LABS: BASOPHILS % 0.9 % (0.0-2.0); EOSINOPHILS % 2.7 % (0.0-5.0); HEMATOCRIT. 38.7 % (42.0-52.0); HEMOGLOBIN. 12.7 g/dL (14.0-18.0); LYMPHOCYTES % 23.4 % (20.0-50.0); MEAN CORPUSCULAR HEMOGLOBIN 25.9 pg (28.0-32.0); MEAN CORPUSCULAR VOLUME 78.9 fL (80.0-94.0); MEAN PLATELET VOLUME 9.7 fl (7.4-10.4); MONOCYTES % 10.6 % (2.0-8.0); NEUTROPHILS % 62.4 % (40.0-76.0); PLATELET 189 x1000/uL (130-400); RED BLOOD CELL COUNT 4.91 mill/uL (4.7-6.1); RED CELL DISTRIBUTION WIDTH 19.7 % (11.6-14.6)
[2019-04-23] MEDS: BLOOD SUGAR DIAGNOSTIC STRIP TEST SCH ×2 (06:39→11:50)
[2019-04-23] MEDS: FAMOTIDINE 20MG TABLET PO SCH (08:32)
[2019-04-23] MEDS: ENOXAPARIN 30MG/0.3ML SYR SUBCUT SCH (08:33)
[2019-04-23] MEDS: INSULIN LISPRO 100 UNITS/ML SUBCUT SCH ×2 (08:37→11:51)
[2019-04-23] MEDS ORDERED: ASPIRIN 81MG EC TABLET PO SCH (09:00)
[2019-04-23] MEDS ORDERED: CLONIDINE 0.2MG TABLET PO PRN (11:30)
== END 2019-04-23 14:07 | disposition home or self-care (01) | DRG 201 ==
LOC: ER 17:07 → CVICU 19:24 → ENRESERV 22:17 → 3WST 04-23 00:55
PROVIDERS: ADMIT Internal Medicine; ATTEND Internal Medicine
PROC: 5A2204Z Restoration of Cardiac Rhythm, Single (ICD-10-PCS; principal; 2019-04-21)
PROC: 0HQ1XZZ Repair Face Skin, External Approach (ICD-10-PCS; 2019-04-21)
PROC: 09QKXZZ Repair Nasal Mucosa and Soft Tissue, External Approach (ICD-10-PCS; 2019-04-21)
DX: I47.1 Supraventricular tachycardia (principal); N17.9 Acute kidney failure, unspecified; I42.0 Dilated cardiomyopathy; E44.1 Mild protein-calorie malnutrition; E83.51 Hypocalcemia; I50.9 Heart failure, unspecified; I11.0 Hypertensive heart disease with heart failure; G40.909 Epilepsy, unspecified, not intractable, without status epilepticus; I48.91 Unspecified atrial fibrillation; S01.112A Laceration without foreign body of left eyelid and periocular area, initial encounter; S01.21XA Laceration without foreign body of nose, initial encounter; S01.81XA Laceration without foreign body of other part of head, initial encounter; F14.10 Cocaine abuse, uncomplicated; F12.10 Cannabis abuse, uncomplicated; E11.9 Type 2 diabetes mellitus without complications; E78.00 Pure hypercholesterolemia, unspecified; R74.0 Nonspecific elevation of levels of transaminase and lactic acid dehydrogenase [LDH]; E78.5 Hyperlipidemia, unspecified; F15.10 Other stimulant abuse, uncomplicated; W19.XXXA Unspecified fall, initial encounter; Y93.89 Activity, other specified; Y92.89 Other specified places as the place of occurrence of the external cause; Y99.8 Other external cause status; Z86.73 Personal history of transient ischemic attack (TIA), and cerebral infarction without residual deficits; Z79.4 Long term (current) use of insulin; Z86.79 Personal history of other diseases of the circulatory system; Z91.19 Patient's noncompliance with other medical treatment and regimen; Z68.30 Body mass index [BMI] 30.0-30.9, adult; Z79.899 Other long term (current) drug therapy
CPT/HCPCS: 36415; 71045; 80048; 80061; 80305; 82550; 82553; 82607; 82746; 82962; 83036; 83735; 83880; 84100; 84484; 90715; 93005; 93306; 93970; 99291; J0282; J0360; J1650; J1815; J2060; J2270; J2405; J3480; J3490; J7030; J7060

== ENCOUNTER 2019-04-26 19:24 | Inpatient (IN) | payer OTHER ==
[~2019-04-26] VITALS: Ht 180.3 cm; Wt 98.4 kg
[~2019-04-26 19:24] MED LIST changes: -CLON0.3T4 PO; -DILT30TA38 PO; -GLIP5TAB12 PO
[2019-04-26] MEDS ORDERED: AMIODARONE HCL 50MG/ML 9ML VIAL IV ONE (19:30)
[2019-04-26] MEDS ORDERED: AMIODARONE HCL 50MG/ML 3ML VIAL IV ONE (19:30)
[2019-04-26] MEDS ORDERED: AMIODARONE HCL 900 MG in DEXT 5% WATER 482 ML IV PRN (19:45)
[2019-04-26] MEDS ORDERED: AMIODARONE HCL 150 MG in DEXT 5% WATER 100 ML IV NR (19:45)
[2019-04-26 19:50] LABS: BG BASE EXCESS -2.7 mmol/L (-2.0-2.0); BG CARBOXYHEMOGLOBIN 0.9 % (0.5-1.5); BG FRACTION INSPIRED OXYGEN 100; BG HCO3 ACT 18.8 mmol/L (22.0-26.0); BG METHEMOGLOBIN 0.2 % (0.0-1.5); BG OXYHEMOGLOBIN 97.9 % (94.0-97.0); BG PCO2 24.9 mmHg (35.0-45.0); BG PH 7.496 (7.350-7.450); BG SAMPLE SITE RIGHT BRACHIAL; BG TOTAL HEMOGLOBIN 13.6 g/dL (12.0-18.0); BG VENT MODE MASK - NRB
[2019-04-26 20:09] LABS: BASOPHILS % 1.5 % (0.0-2.0); EOSINOPHILS % 1.6 % (0.0-5.0); HEMATOCRIT. 41.4 % (42.0-52.0); HEMOGLOBIN. 13.3 g/dL (14.0-18.0); LYMPHOCYTES % 26.7 % (20.0-50.0); MEAN CORPUSCULAR HEMOGLOBIN 25.5 pg (28.0-32.0); MEAN CORPUSCULAR VOLUME 79.6 fL (80.0-94.0); MEAN PLATELET VOLUME 9.4 fl (7.4-10.4); MONOCYTES % 8.5 % (2.0-8.0); NEUTROPHILS % 61.7 % (40.0-76.0); PLATELET 275 x1000/uL (130-400); RED BLOOD CELL COUNT 5.21 mill/uL (4.7-6.1); RED CELL DISTRIBUTION WIDTH 20.6 % (11.6-14.6)
[2019-04-26 20:14] LABS: INR 1.3; PARTIAL THROMBOPLASTIN TIME 31.5 sec (23.4-31.0)
[2019-04-26 20:16] LABS: CHLORIDE 109 mEq/L (98-107)
[2019-04-26 20:20] LABS: ETHANOL BLOOD < 10 mg/dL
[2019-04-26 20:36] LABS: CLARITY URINE CLEAR (CLEAR); COLOR URINE YELLOW (YELLOW); KETONES URINE NEGATIVE (NEGATIVE); LEUKOCYTE ESTERASE URINE TRACE (NEGATIVE); NITRITE URINE NEGATIVE (NEGATIVE); OCCULT BLOOD URINE 1+ (NEGATIVE); PH URINE 6.5 (4.5-8.0); PROTEIN URINE 3+ (NEGATIVE); SPECIFIC GRAVITY URINE 1.014 (1.005-1.030)
[2019-04-26 20:45] LABS: *AMPHETAMINES SCREEN URINE NEGATIVE (NEGATIVE); *BARBITURATES SCREEN URINE NEGATIVE (NEGATIVE); *BENZODIAZEPINES SCREEN URINE NEGATIVE (NEGATIVE); *COCAINE SCREEN URINE PRESUMTIVE POSITIVE (NEGATIVE); METHADONE URINE SCREEN NEGATIVE (NEGATIVE)
[2019-04-26] MEDS ORDERED: FUROSEMIDE 20MG/2ML VIAL IVP ONE (20:45)
[2019-04-26 20:46] LABS: CANNABINOID URINE SCREEN PRESUMTIVE POSITIVE (NEGATIVE); OPIATES URINE SCREEN NEGATIVE (NEGATIVE); PHENCYCLIDINE URINE SCREEN PRESUMTIVE POSITIVE (NEGATIVE)
[2019-04-26] MEDS ORDERED: ENOXAPARIN 40MG/0.4ML SYR SUBCUT SCH (21:15)
[2019-04-26] MEDS ORDERED: IPRATROPIUM/ALBUTEROL 0.5-3(2.5)MG/3ML NEB NEB PRN (21:15)
[2019-04-26] MEDS ORDERED: ONDANSETRON HCL 4MG/2ML INJ IV PRN (21:15)
[2019-04-26] MEDS ORDERED: MAGNESIUM/ALUMINUM HYDROXIDE/SIMETHICONE 30ML UDC PO PRN (21:15)
[2019-04-26] MEDS ORDERED: DOCUSATE SODIUM 100MG CAPSULE PO PRN (21:15)
[2019-04-26 23:01] LABS: CREATINE KINASE MB FRACTION 2.6 ng/mL (0.5-3.6)
[2019-04-27] VITALS (65 sets, daily range): BP systolic 117–193; BP diastolic 79–144
[2019-04-27] MEDS: CLONIDINE 0.1MG TABLET PO PRN ×3 (00:23→18:38)
[2019-04-27] MEDS ORDERED: DEXTROSE 50% WATER 50ML SYRINGE IV PRN (01:00)
[2019-04-27] MEDS ORDERED: ENOXAPARIN 40MG/0.4ML SYR SUBCUT SCH (01:00)
[2019-04-27] MEDS: HYDRALAZINE 20MG/ML VIAL IV PRN ×3 (06:10→23:57)
[2019-04-27 07:04] LABS: BASOPHILS % 2.2 % (0.0-2.0); EOSINOPHILS % 2.8 % (0.0-5.0); HEMATOCRIT. 43.2 % (42.0-52.0); HEMOGLOBIN. 13.7 g/dL (14.0-18.0); LYMPHOCYTES % 24.7 % (20.0-50.0); MEAN CORPUSCULAR HEMOGLOBIN 25.3 pg (28.0-32.0); MEAN CORPUSCULAR VOLUME 79.7 fL (80.0-94.0); MONOCYTES % 10.4 % (2.0-8.0); NEUTROPHILS % 59.9 % (40.0-76.0); PLATELET 249 x1000/uL (130-400); RED BLOOD CELL COUNT 5.42 mill/uL (4.7-6.1); RED CELL DISTRIBUTION WIDTH 20.7 % (11.6-14.6)
[2019-04-27] MEDS: BLOOD SUGAR DIAGNOSTIC STRIP TEST SCH ×4 (07:30→20:10)
[2019-04-27 08:24] LABS: CHLORIDE 107 mEq/L (98-107)
[2019-04-27 08:31] LABS: LDL CHOLESTEROL 90 mg/dL (5-100)
[2019-04-27 08:33] LABS: CREATINE KINASE 52 IU/L (39-308); HDL CHOLESTEROL 41 mg/dL (40-59)
[2019-04-27 08:35] LABS: CREATINE KINASE MB FRACTION 2.4 ng/mL (0.5-3.6)
[2019-04-27] MEDS: FUROSEMIDE 40MG/4ML VIAL IV SCH ×2 (09:52→20:16)
[2019-04-27] MEDS: ENOXAPARIN 30MG/0.3ML SYR SUBCUT SCH ×2 (09:53→20:17)
[2019-04-27] MEDS: INSULIN LISPRO 100 UNITS/ML SUBCUT SCH ×4 (09:56→20:17)
[2019-04-27] MEDS: DILTIAZEM HCL 30MG TABLET PO SCH ×3 (13:02→23:06)
[2019-04-27] MEDS: AMIODARONE HCL 200 MG TABLET PO SCH ×2 (13:05→20:17)
[2019-04-27] MEDS ORDERED: AMIODARONE HCL 900 MG in DEXT 5% WATER 482 ML IV PRN (14:30)
[2019-04-28] VITALS (48 sets, daily range): BP systolic 98–191; BP diastolic 35–124
[2019-04-28] MEDS: CLONIDINE 0.1MG TABLET PO PRN (04:14)
[2019-04-28] MEDS: DILTIAZEM HCL 30MG TABLET PO SCH (05:09)
[2019-04-28] MEDS: HYDRALAZINE 20MG/ML VIAL IV PRN (06:42)
[2019-04-28 07:47] LABS: BASOPHILS % 1.1 % (0.0-2.0); EOSINOPHILS % 3.4 % (0.0-5.0); HEMATOCRIT. 37.8 % (42.0-52.0); HEMOGLOBIN. 12.1 g/dL (14.0-18.0); LYMPHOCYTES % 23.3 % (20.0-50.0); MEAN CORPUSCULAR HEMOGLOBIN 25.4 pg (28.0-32.0); MEAN PLATELET VOLUME 9.1 fl (7.4-10.4); MONOCYTES % 9.7 % (2.0-8.0); NEUTROPHILS % 62.5 % (40.0-76.0); PLATELET 239 x1000/uL (130-400); RED BLOOD CELL COUNT 4.78 mill/uL (4.7-6.1); RED CELL DISTRIBUTION WIDTH 20.4 % (11.6-14.6)
[2019-04-28 07:57] LABS: CHLORIDE 108 mEq/L (98-107)
[2019-04-28] MEDS: INSULIN LISPRO 100 UNITS/ML SUBCUT SCH ×4 (08:00→20:14)
[2019-04-28] MEDS: BLOOD SUGAR DIAGNOSTIC STRIP TEST SCH ×4 (08:02→20:00)
[2019-04-28] MEDS: FUROSEMIDE 40MG/4ML VIAL IV SCH ×2 (08:51→20:00)
[2019-04-28] MEDS: AMIODARONE HCL 200 MG TABLET PO SCH ×2 (08:51→20:00)
[2019-04-28] MEDS: ENOXAPARIN 30MG/0.3ML SYR SUBCUT SCH ×2 (08:51→20:00)
[2019-04-28] MEDS: DILTIAZEM HCL 60MG TABLET PO SCH ×2 (13:20→21:07)
[2019-04-29] VITALS (50 sets, daily range): BP systolic 68–170; BP diastolic 33–152
[2019-04-29] MEDS: ACETAMINOPHEN 325MG TABLET PO PRN ×2 (00:04→08:23)
[2019-04-29] MEDS: CLONIDINE 0.1MG TABLET PO PRN ×3 (03:16→22:13)
[2019-04-29] MEDS: DILTIAZEM HCL 60MG TABLET PO SCH ×3 (05:10→22:13)
[2019-04-29 07:05] LABS: BASOPHILS % 0.8 % (0.0-2.0); EOSINOPHILS % 3.2 % (0.0-5.0); HEMATOCRIT. 37.9 % (42.0-52.0); LYMPHOCYTES % 29.5 % (20.0-50.0); MEAN CORPUSCULAR HEMOGLOBIN 25.2 pg (28.0-32.0); MEAN CORPUSCULAR VOLUME 79.8 fL (80.0-94.0); MEAN PLATELET VOLUME 9.4 fl (7.4-10.4); MONOCYTES % 11.1 % (2.0-8.0); NEUTROPHILS % 55.4 % (40.0-76.0); PLATELET 249 x1000/uL (130-400); RED BLOOD CELL COUNT 4.75 mill/uL (4.7-6.1); RED CELL DISTRIBUTION WIDTH 20.4 % (11.6-14.6)
[2019-04-29 07:09] LABS: CHLORIDE 103 mEq/L (98-107)
[2019-04-29] MEDS: INSULIN LISPRO 100 UNITS/ML SUBCUT SCH ×4 (08:00→20:19)
[2019-04-29] MEDS: BLOOD SUGAR DIAGNOSTIC STRIP TEST SCH ×4 (08:23→20:19)
[2019-04-29] MEDS: FUROSEMIDE 40MG/4ML VIAL IV SCH ×2 (08:58→20:18)
[2019-04-29] MEDS: ENOXAPARIN 30MG/0.3ML SYR SUBCUT SCH ×2 (08:58→20:19)
[2019-04-29] MEDS: AMIODARONE HCL 200 MG TABLET PO SCH ×2 (08:58→20:19)
[2019-04-30] VITALS (25 sets, daily range): BP systolic 132–167; BP diastolic 67–116
[2019-04-30] MEDS: DILTIAZEM HCL 60MG TABLET PO SCH ×3 (05:59→21:29)
[2019-04-30] MEDS: CLONIDINE 0.1MG TABLET PO PRN ×2 (06:01→16:49)
[2019-04-30] MEDS: BLOOD SUGAR DIAGNOSTIC STRIP TEST SCH ×4 (07:30→21:35)
[2019-04-30] MEDS: INSULIN LISPRO 100 UNITS/ML SUBCUT SCH ×4 (08:45→21:00)
[2019-04-30] MEDS: AMIODARONE HCL 200 MG TABLET PO SCH ×2 (08:45→21:29)
[2019-04-30] MEDS: FUROSEMIDE 40MG/4ML VIAL IV SCH ×2 (08:46→14:06)
[2019-04-30] MEDS: ENOXAPARIN 30MG/0.3ML SYR SUBCUT SCH ×2 (08:47→21:31)
[2019-04-30] MEDS: HYDRALAZINE 20MG/ML VIAL IV PRN (08:48)
[2019-05-01] VITALS: BP 159/94
[2019-05-01] MEDS: HYDRALAZINE 10 MG in SODIUM CHLORIDE 0.9% 49.5 ML IV PRN ×2 (00:48→12:09)
[2019-05-01 04:00] VITALS: BP_SYST 139; BP_SYST 156; BP_DIAS 106; BP_DIAS 88
[2019-05-01] MEDS: DILTIAZEM HCL 60MG TABLET PO SCH ×2 (06:17→13:26)
[2019-05-01] MEDS: BLOOD SUGAR DIAGNOSTIC STRIP TEST SCH ×2 (06:22→11:41)
[2019-05-01 08:00] VITALS: BP 163/107
[2019-05-01] MEDS: ENOXAPARIN 30MG/0.3ML SYR SUBCUT SCH (08:18)
[2019-05-01] MEDS: INSULIN LISPRO 100 UNITS/ML SUBCUT SCH ×2 (08:18→11:50)
[2019-05-01] MEDS: AMIODARONE HCL 200 MG TABLET PO SCH (08:18)
[2019-05-01] MEDS: FUROSEMIDE 40MG/4ML VIAL IV SCH (08:18)
[2019-05-01] MEDS: CLONIDINE 0.1MG TABLET PO PRN (09:55)
[2019-05-01 10:34] VITALS: BP 159/95
[2019-05-01 12:00] VITALS: BP 163/84
== END 2019-05-01 15:23 | disposition home or self-care (01) | DRG 201 ==
LOC: ER 19:24 → 3WST 20:49 → EDBEDREQTM 20:51 → EDBEDREQ 20:51 → EDBEDREQSVC 20:51 → ENRESERV 22:02 → 5EST 04-27 03:38 → 6EST 04-30 11:32
PROVIDERS: ADMIT Internal Medicine; ATTEND Internal Medicine
PROC: 0JBQ0ZZ Excision of Right Foot Subcutaneous Tissue and Fascia, Open Approach (ICD-10-PCS; principal; 2019-04-27)
DX: I47.1 Supraventricular tachycardia (principal); N17.9 Acute kidney failure, unspecified; E46 Unspecified protein-calorie malnutrition; E11.22 Type 2 diabetes mellitus with diabetic chronic kidney disease; G90.8 Other disorders of autonomic nervous system; I45.81 Long QT syndrome; E11.51 Type 2 diabetes mellitus with diabetic peripheral angiopathy without gangrene; E11.621 Type 2 diabetes mellitus with foot ulcer; I13.0 Hypertensive heart and chronic kidney disease with heart failure and stage 1 through stage 4 chronic kidney disease, or unspecified chronic kidney disease; E11.65 Type 2 diabetes mellitus with hyperglycemia; I42.0 Dilated cardiomyopathy; I50.22 Chronic systolic (congestive) heart failure; I49.1 Atrial premature depolarization; E05.90 Thyrotoxicosis, unspecified without thyrotoxic crisis or storm; F19.10 Other psychoactive substance abuse, uncomplicated; D63.8 Anemia in other chronic diseases classified elsewhere; N18.9 Chronic kidney disease, unspecified; E78.5 Hyperlipidemia, unspecified; E11.42 Type 2 diabetes mellitus with diabetic polyneuropathy; F14.10 Cocaine abuse, uncomplicated; F15.10 Other stimulant abuse, uncomplicated; G40.909 Epilepsy, unspecified, not intractable, without status epilepticus; J44.9 Chronic obstructive pulmonary disease, unspecified; L97.519 Non-pressure chronic ulcer of other part of right foot with unspecified severity; Z72.0 Tobacco use; Z79.4 Long term (current) use of insulin; Z86.73 Personal history of transient ischemic attack (TIA), and cerebral infarction without residual deficits; Z91.19 Patient's noncompliance with other medical treatment and regimen; Z79.899 Other long term (current) drug therapy; Z91.14 Patient's other noncompliance with medication regimen; Z59.0 Homelessness; Z79.84 Long term (current) use of oral hypoglycemic drugs; Z71.6 Tobacco abuse counseling
CPT/HCPCS: 36415; 36600; 71045; 80048; 80061; 80305; 80320; 81003; 82375; 82550; 82553; 82805; 82962; 83735; 83880; 84443; 84484; 86850; 86900; 93005; 93970; 96365; 99291; J0282; J0360; J1650; J1815; J1940; J7060; A4315; G0480